=== PATIENT | female | born 1940 | race Asian ===

== ENCOUNTER 2018-07-09 10:06 | Inpatient (IN) | payer MEDICARE ==
[2018-07-09] VITALS (10 sets, daily range): BP systolic 89–111; BP diastolic 62–89
[~2018-07-09] VITALS: Ht 157.5 cm; Wt 68.0 kg
[2018-07-09] MEDS ORDERED: FAMOTIDINE10 MG ORAL (10:15)
[2018-07-09] MEDS ORDERED: NORCO 5-325 TA1 EACH ORAL (10:15)
[2018-07-09] MEDS ORDERED: ACETAMINOPHEN120 MG GT (10:15)
[2018-07-09] MEDS ORDERED: ATORVASTATIN CA20 MG ORAL (10:15)
[2018-07-09] MEDS ORDERED: ASPIRIN81 M3 PO (10:15)
[2018-07-09] MEDS ORDERED: Pantoprazole Inj IV ONE (10:15)
[2018-07-09] MEDS ORDERED: ELIQUIS5 MG GT (10:15)
--- NOTE | 2018-07-09 10:30 | NUR ---
ED Nurse Note: Patient brought in to ER by ambulance from [facility] due to vomiting blood since this morning. pt lethargic and drowsy and skin cold to touch and pale. pt non verbal and mental status and pupil reaction unable to assess. pt responds to deep pain only. labored breathing noted. pt is on 10L/min non-breathing mask and saturating 99%. no wheezing noted.
--- NOTE | 2018-07-09 10:40 | NUR ---
ED Nurse Note: Pt has G-tube and has Lt forearm 20G IV HL. Another IV HL made on Rt AC 20 G. non- breather mask removed with RT and saturating at 100% room air.
[2018-07-09 10:43] LABS: HEMATOCRIT 17.3 % (37.0-47.0); MEAN CORPUSCULAR VOLUME 92 FL (80-99); PLATELET COUNT 414 K/UL (150-450); RED BLOOD COUNT 1.88 M/UL (4.20-5.40); RED CELL DISTRIBUTION WIDTH 12.9 % (11.6-14.8); WHITE BLOOD COUNT 21.2 K/UL (4.8-10.8)
[2018-07-09 10:45] LABS: HEMOGLOBIN 5.9 G/DL (12.0-16.0)
[2018-07-09 10:49] LABS: INR 1.1 (0.9-1.1)
[2018-07-09] MEDS ORDERED: Piperacillin/Tazobactam 3.375 GM in NS 110 ML IVPB ONE (11:00)
--- NOTE | 2018-07-09 11:00 | NUR ---
ED Nurse Note: Pt had large BM in diaper, soft and tarry. ERMD notified.
[2018-07-09 11:02] LABS: ANION GAP 11 mmol/L (5-15); BLOOD UREA NITROGEN 99 mg/dL (7-18); CALCIUM 8.7 MG/DL (8.5-10.1); CARBON DIOXIDE 23 MMOL/L (21-32); CHLORIDE 108 MMOL/L (98-107); CREATININE 1.2 MG/DL (0.55-1.30); POTASSIUM 5.2 MMOL/L (3.5-5.1); SODIUM 142 MMOL/L (136-145)
[2018-07-09 11:04] LABS: APPEARANCE,URINE CLOUDY; BILIRUBIN, URINE NEGATIVE (NEGATIVE); GLUCOSE, URINE (UA) NEGATIVE (NEGATIVE); KETONES,URINE 1+ (NEGATIVE); LEUKOCYTE ESTERASE ,URINE 3+ (NEGATIVE); NITRITE,URINE NEGATIVE (NEGATIVE); PH,URINE 5 (4.5-8.0); PROTEIN,URINE 3+ (NEGATIVE); UROBILINOGEN,URINE NORMAL MG/DL (0.0-1.0)
[2018-07-09 11:05] LABS: AMMONIA 35 umol/L (11-32)
--- NOTE | 2018-07-09 11:10 | NUR ---
ED Nurse Note: Rt upper inner thigh/groin area redness with rash noted.
[2018-07-09 11:11] LABS: ALANINE AMINOTRANSFERASE 39 U/L (12-78); ALBUMIN 2.2 G/DL (3.4-5.0); ALBUMIN/GLOBULIN RATIO 0.6 (1.0-2.7); ALKALINE PHOSPHATASE 50 U/L (46-116); ASPARTATE AMINO TRANSFERASE 50 U/L (15-37); BILIRUBIN,TOTAL 0.1 MG/DL (0.2-1.0); CREATINE KINASE 827 U/L (26-308)
[2018-07-09 11:15] LABS: COLOR,URINE PALE YELLOW
--- NOTE | 2018-07-09 11:26 | NUR ---
ED Nurse Note: notified Dr Kenneth joyner pt's BP
--- NOTE | 2018-07-09 11:50 | Diagnostic Imaging Report ---
Indications: Altered mental status Technique: Spiral acquisitions obtained through the brain. Angled axial and coronal 5 x 5 mm slices were reconstructed. Total dose length product 1417.94 mGycm. CTDI vol(s) 70.38 mGy. Dose reduction achieved using automated exposure control Comparison: None. Findings: There is evidence of prior right frontotemporoparietal craniotomy. 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 There is a small extra-axial collection deep to the craniotomy flap which measures approximately 5 mm thick. This demonstrates a high attenuation in earlier and lower attenuation peripherally. This does not result in any significant mass effect. No definite acute intracranial hemorrhage nor edema, mass effect, nor midline shift. There is enlargement of the ventricles and to a lesser extent the extra-axial CSF spaces. There is periventricular deep white matter low-attenuation. Visualized orbits and sinuses are unremarkable. The left mastoids are underpneumatized. Impression: Evidence of prior right-sided aneurysm clipping Ventriculomegaly. Most likely on the basis of central atrophy but hydrocephalus also possible. Periventricular low attenuation, most likely on the basis of microvascular ischemic changes. 5 mm thick extra-axial collection deep to the craniotomy flap. Appearance is more suggestive of chronic dural scarring related to the prior surgery than acute bleed. No associated mass effect The CT scanner at [facility] is accredited by the [employer] and the scans are performed using protocols designed to limit radiation exposure to as low as reasonably achievable to attain images of sufficient resolution adequate for diagnostic evaluation.
--- NOTE | 2018-07-09 12:00 | NUR ---
ED Nurse Note: Blood transfusion initiated at Vital signs 98.4F, 111/min, 91/54 mmHg.
--- NOTE | 2018-07-09 12:15 | NUR ---
ED Nurse Note: RN stayed at bedside for 15 minutes and no adverse reaction noted. Vital signs 98.8F, 112/min, 89/65 mmHg. Son at bedside.
--- NOTE | 2018-07-09 12:32 | Diagnostic Imaging Report ---
Indication: Abdominal pain, GI bleed Technique: Spiral acquisitions obtained through the abdomen and pelvis. No oral contrast utilized, per emergency room physician request No IV contrast utilized, per referring physician request.. Multiplanar reconstructions were generated. Total dose length product 569.56 mGycm. CTDIvol(s) 11.9 mGy. Dose reduction achieved using automated exposure control Comparison: None Findings: There is some image degradation due to respiratory motion artifact. Lack of enteric contrast limits assessment of the GI tract. No evidence of diverticulosis or diverticulitis. The appendix is normal. There is a gastrostomy tube in good position. Distal esophagus, stomach, duodenum are otherwise unremarkable. No small bowel distention. No free or loculated intraperitoneal gas or fluid is evident. Lack of IV contrast limits assessment of the solid organs. The gallbladder is mildly distended. No gallstones are evident. The liver, bile ducts, pancreas, spleen, adrenals, kidneys are grossly unremarkable. No retroperitoneal or mesenteric mass or adenopathy. No pelvic mass or adenopathy. The uterus and adnexal structures are unremarkable. Amato catheter is present within the bladder which is nondistended. Atelectatic changes and hazy ground glass opacities are seen at the lung bases. The bones demonstrate degenerative spondylosis changes. There is a pericardial effusion, predominantly involving the anterior wall, which measures up to 15 mm thick Impression: Limited assessment of the GI tract, due to lack of enteric contrast administration No definite acute abdominal or pelvic abnormality 15 mm thick anterior wall pericardial effusion Gastrostomy Basilar pulmonary atelectatic changes. Nonspecific hazy groundglass opacities, could represent atelectasis or edema Other findings as noted, including degenerative spondylosis, Amato catheter The CT scanner at [facility] is accredited by the [employer] and the scans are performed using protocols designed to limit radiation exposure to as low as reasonably achievable to attain images of sufficient resolution adequate for diagnostic evaluation.
[2018-07-09] MEDS ORDERED: Zosyn 3.375gm inj ONE (12:43)
--- NOTE | 2018-07-09 13:43 | NUR ---
ED Nurse Note: BP is increasing to 108/76 mmHg
--- NOTE | 2018-07-09 14:21 | Diagnostic Imaging Report ---
. Indication: Cough Technique: One view of the chest Comparison: none Findings: There is some atelectasis at the left lung base. Lungs and pleural spaces are otherwise clear. Heart size is normal. Impression: Left basilar atelectasis. No acute process otherwise
--- NOTE | 2018-07-09 14:45 | NUR ---
ED Nurse Note: 2nd bag of blood initiated with 2 RN verification. no adverse reaction noted. VS 98F, 107/min, 106/72 mmHg.
--- NOTE | 2018-07-09 15:00 | NUR ---
ED Nurse Note: nurse stayed at bedside for 15 minutes and no adverse reaction noted. pt responds to commands which is improved status than earlier.
--- NOTE | 2018-07-09 15:02 | NUR ---
ED Nurse Note: attempted to give report. nurse is not available. will attempt in 20 minutes again.
--- NOTE | 2018-07-09 15:41 | Emergency Room Report ---
History of Present Illness General Chief Complaint: Altered Level of Consciousness Source: Family Member, Medical Record, EMS Present Illness HPI Patient presents emergency department today with episode of coffee-ground emesis and melena. Patient had a history of subarachnoid hemorrhage or prior surgical intervention. Patient currently staying in a intermediate. Patient is DO NOT RESUSCITATE with selective treatment. Family states that they do not want anything invasive or heroic. Patient at baseline is nonverbal. No further history is available. Symptoms noted to be highly severe. No other modifying factors. No other associated signs and symptoms. No other complaints were noted. Allergies: Coded Allergies: No Known Allergies (Unverified , 07/09/18) Patient History Past Medical History: CVA/TIA Past Surgical History: other - Brain surgery Pertinent Family History: none Social History Narrative stays at intermediate Reviewed Nursing Documentation: PMH: Agreed; PSxH: Agreed Nursing Documentation-PMH Hx Cerebrovascular Accident: Yes Review of Systems All Other Systems: limited - Poor mental status Physical Exam Vital Signs Date Time Temp Pulse Resp B/P (MAP) Pulse Ox O2 Delivery O2 Flow Rate FiO2 07/09/18 09:59 98.6 130 20 106/84 99 Non-Rebreather 15.0 Sp02 EP Interpretation: reviewed, normal General Appearance: Chronically Ill, Stupor Head: atraumatic Eyes: bilateral eye normal inspection ENT: dry mucus membranes, other - Coffee-ground emesis Neck: normal inspection, full range of motion, supple, no bony tend Respiratory: decreased breath sounds, other - Increased respiratory rate Cardiovascular #1: no edema, tachycardia Gastrointestinal: soft, other - No masses Genitourinary: deferred Musculoskeletal: decreased range of motion, other - Evidence of contractures Neurologic: other - Unable to assess Psychiatric: other - Unable to assess Skin: normal inspection, normal color, no rash Procedures Critical Care Time Critical Care Time Patient had a critical medical condition which untreated could potentially result in life or limb threatening injury. Total critical care time excluding procedures was approximately 45 minutes. Medical Decision Making Diagnostic Impression: Primary Impression: Sepsis Additional Impressions: Acute gastrointestinal bleeding Hypotension Anemia ER Course Patient presents emergency department today with active bleeding. Differential considerations include acute GI bleeding, acute infectious process, acute electrolyte abnormality, anemia, dehydration just name a few.Given the severity of the patient's presentation I felt this is a highly complex patient. This patient required extensive workup. Patient's laboratory workup shows an elevated white blood cell count. Because this patient was started on IV antibiotics. Urine does show evidence of infection and likely the source of patient's infection. Patient had a chest x-ray which was negative. Patient's CT of the head abdomen pelvis were also negative. Patient was given Protonix. Patient was given blood transfusion. Case was discussed with Dr. Kayden Nichols. Patient will be admitted to the [facility] for further management. Patient is DO NOT RESUSCITATE. Labs Test 07/09/18 10:28 07/09/18 10:50 White Blood Count 21.2 K/UL (4.8-10.8) Red Blood Count 1.88 M/UL (4.20-5.40) Hemoglobin 5.9 G/DL (12.0-16.0) Hematocrit 17.3 % (37.0-47.0) Mean Corpuscular Volume 92 FL (80-99) Mean Corpuscular Hemoglobin 31.1 PG (27.0-31.0) Mean Corpuscular Hemoglobin Concent 33.8 G/DL (32.0-36.0) Red Cell Distribution Width 12.9 % (11.6-14.8) Platelet Count 414 K/UL (150-450) Mean Platelet Volume 5.9 FL (6.5-10.1) Neutrophils (%) (Auto) % (45.0-75.0) Lymphocytes (%) (Auto) % (20.0-45.0) Monocytes (%) (Auto) % (1.0-10.0) Eosinophils (%) (Auto) % (0.0-3.0) Basophils (%) (Auto) % (0.0-2.0) Differential Total Cells Counted 100 Neutrophils % (Manual) 79 % (45-75) Lymphocytes % (Manual) 13 % (20-45) Monocytes % (Manual) 5 % (1-10) Eosinophils % (Manual) 0 % (0-3) Basophils % (Manual) 0 % (0-2) Band Neutrophils 3 % (0-8) Platelet Estimate Adequate Platelet Morphology Normal Polychromasia 1+ Hypochromasia 2+ Prothrombin Time 11.4 SEC (9.30-11.50) Prothromb Time International Ratio 1.1 (0.9-1.1) Activated Partial Thromboplast Time 27 SEC (23-33) Sodium Level 142 MMOL/L (136-145) Potassium Level 5.2 MMOL/L (3.5-5.1) Chloride Level 108 MMOL/L (98-107) Carbon Dioxide Level 23 MMOL/L (21-32) Anion Gap 11 mmol/L (5-15) Blood Urea Nitrogen 99 mg/dL (7-18) Creatinine 1.2 MG/DL (0.55-1.30) Estimat Glomerular Filtration Rate mL/min (>60) Glucose Level 166 MG/DL (74-106) Calcium Level 8.7 MG/DL (8.5-10.1) Total Bilirubin 0.1 MG/DL (0.2-1.0) Aspartate Amino Transf (AST/SGOT) 50 U/L (15-37) Alanine Aminotransferase (ALT/SGPT) 39 U/L (12-78) Alkaline Phosphatase 50 U/L (46-116) Ammonia 35 umol/L (11-32) Total Creatine Kinase 827 U/L (26-308) Troponin I 0.099 ng/mL (0.000-0.056) Total Protein 5.9 G/DL (6.4-8.2) Albumin 2.2 G/DL (3.4-5.0) Globulin 3.7 g/dL Albumin/Globulin Ratio 0.6 (1.0-2.7) Lipase 540 U/L (73-393) Urine Color Pale yellow Urine Appearance Cloudy Urine pH 5 (4.5-8.0) Urine Specific [place] 1.015 (1.005-1.035) Urine Protein 3+ (NEGATIVE) Urine Glucose (UA) Negative (NEGATIVE) Urine Ketones 1+ (NEGATIVE) Urine Blood 5+ (NEGATIVE) Urine Nitrite Negative (NEGATIVE) Urine Bilirubin Negative (NEGATIVE) Urine Urobilinogen Normal MG/DL (0.0-1.0) Urine Leukocyte Esterase 3+ (NEGATIVE) Urine RBC 5-10 /HPF (0 - 2) Urine WBC Tntc /HPF (0 - 2) Urine Squamous Epithelial Cells Few /LPF (NONE/OCC) Urine Bacteria Moderate /HPF (NONE) EKG Diagnostic Results Rate: tachycardiac Rhythm: NSR ST Segments: no acute changes Rhythm Strip Diag. Results EP Interpretation: yes Rate: 118 Rhythm: NSR, no PVC's, no ectopy Chest X-Ray Diagnostic Results Chest X-Ray Diagnostic Results : Chest X-Ray Ordered: Yes Impression: Other - Negative per radiology CT/MRI/US Diagnostic Results CT/MRI/US Diagnostic Results : Imaging Test Ordered: CT head: Postsurgical changes, CT on pelvis: NegativeExcept for pericardial Last Vital Signs Date Time Temp Pulse Resp B/P (MAP) Pulse Ox O2 Delivery O2 Flow Rate FiO2 07/09/18 15:00 97.8 106 20 111/80 100 Room Air 07/09/18 10:30 10.0 Status: improved Disposition: ADMITTED INPATIENT Condition: Serious Referrals: NON PHYSICIAN (PCP) Lalo Cooper MD Jul 09, 2018 15:41
--- NOTE | 2018-07-09 16:06 | NUR ---
ED Nurse Note: Report given to MELE Denise
--- NOTE | 2018-07-09 16:30 | NUR ---
ED Nurse Note: Pt left department with 1 interventional radiology tech and 1 RN in stable condition. blood transfusion completed without adverse reaction. vital signs at 97.9F, 103/min, 107/77 mmHg noted.
--- NOTE | 2018-07-09 16:40 | NUR ---
NURSE NOTES: Received pt ,a new admission from ED,lethargic,non verbal in no resp distress on RA,no signs of pain or discomfort,SR on the monitor,accompanied by spouse and family members.Pt with Amato cath draining yellow urine,IV site to RAC and RFA intact,pt with clamped GT,skin warm and dry,no skin break noted to sacrum,pt cleaned and turned to sides,bed lock in lowest position,bed alarm in placed.Report given by Fouzia ZELAYA RN.
[2018-07-09] MEDS ORDERED: DUONEB 0.5-3(2.53 ML HHN (17:20)
--- NOTE | 2018-07-09 19:20 | NUR ---
NURSE NOTES: Received report from Анна Cagle RN. Patient is asleep in bed, arousable to light shaking, A/O x1. Sinus rhythm on quality assurance monitor. Saturating well on room air. No s/s of acute distress noted. GT in place and currently clamped. Amato catheter intact and draining well to gravity. Right AC 20g IV saline lock, intact and patent. Right forearm 20g IV saline lock, intact and patent. Bed locked in lowest position with side rails up x3. Call light left within reach. Will continue to monitor. Addendum: 07/10/18 at 0024 by MINDI STEPHEN RN LEFT WRIST 20g -- NOT right forearm 20g
--- NOTE | 2018-07-09 19:30 | NUR ---
HAND-OFF: Report given to Fela Kate RN,pt resting in bed asleep ,stable no further bleeding presented.Pt received 2 units of PRBC in ER. .
[2018-07-09] MEDS: Piperacillin/Tazobactam 3.375 GM in NS 110 ML IVPB SCH (22:05)
[2018-07-10] VITALS: BP 112/64
--- NOTE | 2018-07-10 01:30 | Consultation ---
DATE OF CONSULTATION: 07/09/2018 CARDIOLOGY CONSULTATION CONSULTING PHYSICIAN: Kayden Nichols M.D. REQUESTING PHYSICIAN: Miguel Walker M.D. REASON FOR CONSULTATION: Shock and elevated troponin level. HISTORY OF PRESENT ILLNESS: This is a 77-year-old Nepali female, who resides at a care home facility. She was noted to be withdrawn and lethargic today and had coffee-grounds emesis and melena. The patient has a history of prior subarachnoid hemorrhage and has underlying cerebrovascular compromise as a result. Advance directives for DNR noted. The patient is nonverbal at baseline. In the emergency room, the patient was noted to have a drop in blood pressure to the 80 systolic range, rapid heart rate above 130, and an abnormal hemoglobin level of 5.9. PAST MEDICAL HISTORY: Cerebrovascular accident, subarachnoid hemorrhage, chronic encephalopathy, aphasia, and hypertension. MEDICATIONS: Prior to admission, reviewed and reconciled. ALLERGIES: None. SOCIAL HISTORY: Negative for smoking, alcohol, or substance abuse. FAMILY HISTORY: Not known. REVIEW OF SYSTEMS: Not obtainable. PHYSICAL EXAMINATION: VITAL SIGNS: Initial blood pressure 106/84, heart rate 130, and respiratory rate 20. Subsequently, blood pressure 89/65 with heart rate 112 and respiratory rate 21. The patient has been on a non-rebreather mask, withdrawn, lethargic, and noncommunicative. LUNGS: Accessary muscle use. Bilateral breath sounds with rhonchi. HEART: Regular rhythm and rate. Normal S1, S2. ABDOMEN: Soft. There is a G-tube intact. There is no focal tenderness or distention. EXTREMITIES: Without edema. SKIN: Intact with no decubitus. LABORATORY DATA: White count 21, hemoglobin 5.9, and platelets 414,000. Troponin 0.099. Albumin 2.2. Sodium 142, potassium 5.2, bicarbonate 23, BUN 99, creatinine 1.2, and glucose 166. CK 827. Lipase 540. Chest x-ray reveals no acute process. EKG reveals sinus tachycardia with nonspecific ST change. Urinalysis revealed too numerous to count white cells. IMPRESSION: 1. Acute gastrointestinal bleeding. 2. Urinary tract infection with sepsis. 3. Shock. 4. Severe anemia. 5. Possible pancreatitis. 6. Acute myocardial ischemia. 7. Sinus tachycardia. 8. History of hemorrhagic stroke. 9. Coagulopathy due to apixaban. 10. Severe protein-calorie malnutrition. 11. Dysphagia with G-tube. 12. Pericardial effusion. PLAN: 1. DNR. 2. Volume resuscitation. 3. Panculture. 4. Broad-spectrum antibiotics. 5. Transfuse for hemoglobin above 7. 6. Discontinue all anti-platelet and anticoagulant therapy. 7. Intravenous proton pump inhibitor. 8. Recheck laboratory studies. 9. NPO for now. Subsequent nutrition by feeding tube. 10. Pressors may be used if needed, but no resuscitation or intubation planned. 11. Echocardiogram to evaluate pericardium. Kayden Nichols M.D. DR: JUAN JOB#: [id number] CC: TACO
[2018-07-10 04:00] VITALS: BP 105/67
[2018-07-10] MEDS: Piperacillin/Tazobactam 3.375 GM in NS 110 ML IVPB SCH ×3 (05:30→22:08)
[2018-07-10 05:45] LABS: HEMOGLOBIN 8.5 G/DL (12.0-16.0); MEAN CORPUSCULAR VOLUME 89 FL (80-99); PLATELET COUNT 288 K/UL (150-450); RED BLOOD COUNT 2.81 M/UL (4.20-5.40); RED CELL DISTRIBUTION WIDTH 12.9 % (11.6-14.8)
[2018-07-10 06:18] LABS: CKMB 3.5 NG/ML (0.0-3.6)
[2018-07-10 06:25] LABS: ALANINE AMINOTRANSFERASE 34 U/L (12-78); ALBUMIN 2.2 G/DL (3.4-5.0); ALBUMIN/GLOBULIN RATIO 0.7 (1.0-2.7); ALKALINE PHOSPHATASE 41 U/L (46-116); ANION GAP 9 mmol/L (5-15); ASPARTATE AMINO TRANSFERASE 34 U/L (15-37); BILIRUBIN,TOTAL 0.2 MG/DL (0.2-1.0); BLOOD UREA NITROGEN 49 mg/dL (7-18); CALCIUM 7.9 MG/DL (8.5-10.1); CARBON DIOXIDE 23 MMOL/L (21-32); CHLORIDE 117 MMOL/L (98-107); CHOLESTEROL 121 MG/DL (< 200); CREATININE 0.8 MG/DL (0.55-1.30); HDL CHOLESTEROL 17 MG/DL (40-60); POTASSIUM 4.2 MMOL/L (3.5-5.1); SODIUM 149 MMOL/L (136-145); TRIGLYCERIDES 260 MG/DL (30-150)
--- NOTE | 2018-07-10 07:15 | NUR ---
HAND-OFF: Report given to Анна Cagle RN.
--- NOTE | 2018-07-10 07:20 | NUR ---
NURSE NOTES: Report received from Fela Kate RN.Pt resting quietly in bed ,with eyes closed ,opens eyes with verbal commands,non verbal but nods or shakes head as a reply,no signs of pain or discomfort,no bleeding presented,kept NPO GT clamped with abdominal binder in placed,Amato cath to BSD draining yellow urine,IV sites x2 RAC and RH with IVF NS at 75ml/hr,skin warm and dry,SR up x2 HOB elevated,bed lock in lowest position,will continue with plans of care.
[2018-07-10 08:00] VITALS: BP 93/58
--- NOTE | 2018-07-10 08:07 | NUR ---
CASE MANAGEMENT:REVIEW 77 YR OLD [facility] CC: ALOC. DARK COLORED EMESIS X2 SI: SEPSIS. GIB. ANEMIA 130 20 106/84 99% ON NON REBREATHER WBC+21.2 H/H-5.9/17.3 IS: IV ZOFRAN IV PROTONIX IV PEPCID CT HEAD/ABD/PELVIS CHEST XRAY : TO TELEMETRY IS: TRANSFUSE 2 UNITS PRBC'S INTERQUAL CRITERIA MET
[2018-07-10] MEDS: Pantoprazole Inj IVP SCH (09:23)
[2018-07-10 12:00] VITALS: BP 111/59
--- NOTE | 2018-07-10 13:00 | NUR ---
NURSE NOTES: Pt stable no vomitting or bleeding presented,resting quietly in bed.
[2018-07-10 16:00] VITALS: BP 125/74
--- NOTE | 2018-07-10 16:23 | NUR ---
*-* INSURANCE *-* ALL CLINICALS AND REVIEW HAVE BEEN FAXED TO: NEHA/LO[employer]: PEYMAN P- [phone] [phone] [phone]
--- NOTE | 2018-07-10 17:28 | NUR ---
NURSE NOTES: Pt's family at bedside,awaiting for Dr Nichols.they would like to know re plans of care for pt.
--- NOTE | 2018-07-10 19:30 | NUR ---
HAND-OFF: Report given to London Gray RN .
--- NOTE | 2018-07-10 19:35 | NUR ---
NURSE NOTES: Received report from MELE Holloway. Pt is awake and resting in bed. IV line intact and patent. Bed in lowest position, call light within reach. Will Continue plan of care.
[2018-07-10 20:00] VITALS: BP 118/61
[2018-07-10] MEDS: D5 1/2NS w/KCL 10meq 1,000 ML IV SCH (20:22)
[2018-07-11] VITALS: BP 136/78
--- NOTE | 2018-07-11 | Progress Note ---
DATE: 07/10/2018 CARDIOLOGY PROGRESS NOTE SUBJECTIVE: The patient is not in any distress. Eyes are closed, response to verbal commands with head nodding. No apparent pain. No shortness of breath. No additional nausea or vomiting. G-tube is clamped. PHYSICAL EXAMINATION: VITAL SIGNS: Blood pressure 105/67, pulse 93, respirations 20. LUNGS: Coarse breath sounds. No wheezing. HEART: Regular rhythm and rate. Normal S1, S2. ABDOMEN: Soft. G-tube intact. EXTREMITIES: No focal tenderness. No edema. DIAGNOSTIC DATA: Echocardiogram, normal ejection fraction, mild tricuspid regurgitation. Hemodynamically insignificant pericardial echo free space. Urine culture positive for gram-negative bacillus. IMPRESSION: 1. Sepsis. 2. Urinary tract infection with shock. 3. GI bleed. 4. Severe anemia, follow status post transfusion. 5. Dehydration. 6. Hypernatremia. 7. Severe protein-calorie malnutrition. PLAN: 1. Hypotonic IV fluids. 2. Monitor hemoglobin. 3. Antimicrobials. 4. Await final cultures. 5. GI consult pending. 6. Proton pump inhibitor. 7. Resume feedings if no signs of bleeding over the next 24 hours. Kayden Nichols M.D. DR: TANYA JOB#: [id number] CC:
[2018-07-11 04:00] VITALS: BP 115/66
[2018-07-11 05:28] LABS: HEMATOCRIT 23.4 % (37.0-47.0); HEMOGLOBIN 7.9 G/DL (12.0-16.0); MEAN CORPUSCULAR VOLUME 91 FL (80-99); PLATELET COUNT 269 K/UL (150-450); RED BLOOD COUNT 2.57 M/UL (4.20-5.40); RED CELL DISTRIBUTION WIDTH 13.5 % (11.6-14.8); WHITE BLOOD COUNT 16.1 K/UL (4.8-10.8)
[2018-07-11 05:58] LABS: ALANINE AMINOTRANSFERASE 29 U/L (12-78); ALBUMIN 2.1 G/DL (3.4-5.0); ALBUMIN/GLOBULIN RATIO 0.7 (1.0-2.7); ALKALINE PHOSPHATASE 46 U/L (46-116); ANION GAP 9 mmol/L (5-15); ASPARTATE AMINO TRANSFERASE 30 U/L (15-37); BILIRUBIN,TOTAL 0.3 MG/DL (0.2-1.0); BLOOD UREA NITROGEN 23 mg/dL (7-18); CALCIUM 7.4 MG/DL (8.5-10.1); CARBON DIOXIDE 22 MMOL/L (21-32); CHLORIDE 117 MMOL/L (98-107); CREATININE 0.7 MG/DL (0.55-1.30); POTASSIUM 3.3 MMOL/L (3.5-5.1); SODIUM 148 MMOL/L (136-145)
[2018-07-11] MEDS: D5 1/2NS w/KCL 10meq 1,000 ML IV SCH ×3 (06:11→17:18)
[2018-07-11] MEDS: Piperacillin/Tazobactam 3.375 GM in NS 110 ML IVPB SCH (06:11)
--- NOTE | 2018-07-11 07:19 | NUR ---
NURSE NOTES: Report received from MELE Callahan. Observed patient in bed sleeping. Arousable by voice but non-verbal. No distress noted in room air. IVF running at prescribed rate. No s/s of pain at this time. F/C intact and draining well. Bed in lowest position. Call light within reach. Will continue to monitor.
--- NOTE | 2018-07-11 07:20 | NUR ---
HAND-OFF: Report given to MELE Moreira.
--- NOTE | 2018-07-11 07:33 | NUR ---
NURSE NOTES: Informed Dr. Kim regarding decreased Hgb level with no new order at this time.
--- NOTE | 2018-07-11 07:58 | General Progress Note ---
Assessment/Plan Assessment/Plan Assessment - UGIB - clinically resolved - Anemia - Dysphagia, s/p Prior GT - CVA/OBS - DNR Recommendations - Follow CBC - Hold anticoagulation - PPI - discuss with family re options and plan of care - If no planned EGD, would restart feeds today. Thank you Tonia Kim MD Subjective Allergies: Coded Allergies: No Known Allergies (Unverified , 07/09/18) Objective Last 24 Hour Vital Signs Date Time Temp Pulse Resp B/P (MAP) Pulse Ox O2 Delivery O2 Flow Rate FiO2 07/11/18 07:45 Room Air 07/11/18 04:00 Room Air 07/11/18 04:00 82 07/11/18 04:00 98.7 82 20 115/66 (82) 98 07/11/18 00:00 Room Air 07/11/18 00:00 85 07/11/18 00:00 98.6 85 18 136/78 (97) 97 07/10/18 20:00 81 07/10/18 20:00 98.7 81 20 118/61 (80) 98 07/10/18 20:00 Room Air 07/10/18 16:00 97 07/10/18 16:00 Room Air 07/10/18 16:00 98.6 97 20 125/74 (91) 96 07/10/18 12:00 Room Air 07/10/18 12:00 94 07/10/18 12:00 98.8 92 18 111/59 (76) 96 07/10/18 08:00 99 07/10/18 08:00 Room Air 07/10/18 08:00 97.9 93 22 93/58 (70) 99 Intake and Output 07/10/18 07/11/18 18:59 06:59 Intake Total 910 ml Output Total 600 ml 1000 ml Balance -600 ml -90 ml IV Total 910 ml Output Urine Total 600 ml 1000 ml Laboratory Tests 07/11/18 03:45: White Blood Count 16.1H, Red Blood Count 2.57L, Hemoglobin 7.9L, Hematocrit 23.4L, Mean Corpuscular Volume 91, Mean Corpuscular Hemoglobin 30.7, Mean Corpuscular Hemoglobin Concent 33.6, Red Cell Distribution Width 13.5, Platelet Count 269, Mean Platelet Volume 6.4L, Neutrophils (%) (Auto) , Lymphocytes (%) ( Auto) , Monocytes (%) (Auto) , Eosinophils (%) (Auto) , Basophils (%) (Auto) , Neutrophils % (Manual) [Pending], Lymphocytes % (Manual) [Pending], Platelet Estimate [Pending], Platelet Morphology [Pending], Sodium Level 148H, Potassium Level 3.3L, Chloride Level 117H, Carbon Dioxide Level 22, Anion Gap 9, Blood Urea Nitrogen 23H, Creatinine 0.7, Estimat Glomerular Filtration Rate , Glucose Level 91, Calcium Level 7.4L, Total Bilirubin 0.3, Aspartate Amino Transf (AST/ SGOT) 30, Alanine Aminotransferase (ALT/SGPT) 29, Alkaline Phosphatase 46, Total Protein 5.3L, Albumin 2.1L, Globulin 3.2, Albumin/Globulin Ratio 0.7L, Lipase 220 Height (Feet): 5 Height (Inches): 2.00 Weight (Pounds): 150 Tonia Kim MD Jul 11, 2018 07:58
[2018-07-11 08:00] VITALS: BP 129/69
[2018-07-11] MEDS: Pantoprazole Inj IVP SCH (08:03)
--- NOTE | 2018-07-11 09:08 | NUR ---
NURSE NOTES: Informed Dr. Walker regarding low potassium level. Doctor said he will put orders.
[2018-07-11 12:00] VITALS: BP 135/70
[2018-07-11] MEDS ORDERED: cefTRIAXone 1 GM in D5W 55 ML IVPB SCH (12:00)
--- NOTE | 2018-07-11 14:50 | NUR ---
RD ASSESSMENT & RECOMMENDATIONS SEE CARE ACTIVITY FOR COMPLETE ASSESSMENT DAILY ESTIMATED NEEDS: Needs based on cardiac 55.5kg 25-30 kcals/kg 2129-6925 total kcals 1-1.2 g protein/kg 56-67 g total protein 25-30 mL/kg 4031-8927 total fluid mLs NUTRITION DIAGNOSIS: Swallowing difficulty r/t dysphagia as evidenced by pt is GT dep. CURRENT TF:NPO ENTERAL NUTRITION RECOMMENDATIONS: Osmolite 1.2 @50ml/hr x24 hrs to provide 1200ml, 1440 kcal, 67g prot, 984mll free H2O - As medically able, rec Osmolite 1.2, start @20ml/hr for 6 hrs - Advance as tolerated 10ml/hr q4-6 hrs to goal of 50ml/hr x24 hrs - Flush per MD. HOB over 30 degrees ADDITIONAL RECOMMENDATIONS: 1) Check lytes, BG daily on TF 2) Per SNF: pt is 122# -> Weekly wts on TF on Calibrated bed scale 3) Increase water flushes/ currently w/ elev Na (148) and BUN (23)
[2018-07-11 14:54] LABS: HEMATOCRIT 22.5 % (37.0-47.0); HEMOGLOBIN 7.5 G/DL (12.0-16.0); MEAN CORPUSCULAR VOLUME 90 FL (80-99); PLATELET COUNT 257 K/UL (150-450); RED BLOOD COUNT 2.49 M/UL (4.20-5.40); RED CELL DISTRIBUTION WIDTH 13.5 % (11.6-14.8); WHITE BLOOD COUNT 12.3 K/UL (4.8-10.8)
--- NOTE | 2018-07-11 15:00 | History and Physical Report ---
DATE OF ADMISSION: 07/09/2018 CHIEF COMPLAINT: GI bleed, sepsis, and encephalopathy. HISTORY OF PRESENT ILLNESS: The patient is a 77-year-old [place] female, who was transferred from a correction facility with complaints of altered mentation and coffee-ground emesis. The patient is a poor historian and unable provide any history. She has prior history of atrial fibrillation, aortic sclerosis, history of a ruptured internal carotid artery aneurysm, subarachnoid hemorrhage. She was transferred from a correction facility with complaints of altered mentation and coffee-ground emesis. On evaluation in the emergency room, her vital signs were stable. She had a white count of 21,000 and hemoglobin of 6 with hematocrit of 17. She has been transfused packed red blood cells and is now admitted for further evaluation and care. Of note, she also had UA showed too numerous to count wbc's. PAST MEDICAL HISTORY: As above. She has a history of aspiration pneumonia, history of G-tube, dysphagia, gastritis, prior history of craniotomy, osteoporosis, hyperlipidemia, history of vertigo, dementia, and cardiomegaly. PAST SURGICAL HISTORY: As above. CURRENT MEDICATIONS: Reconciled and reviewed. ALLERGIES: None. FAMILY HISTORY: Unknown. SOCIAL HISTORY: There is no known history of tobacco, ethanol, or drugs. The patient is a DNR. REVIEW OF SYSTEMS: Unobtainable. PHYSICAL EXAMINATION: VITAL SIGNS: Temperature 97.9, pulse 82, respirations 20, and blood pressure 129/69. GENERAL: The patient is a chronically ill-appearing female, no apparent distress. HEART: Regular rate and rhythm. LUNGS: Scattered rhonchi. ABDOMEN: Soft, nontender, and nondistended. G-tube site was clean and intact. EXTREMITIES: Without clubbing, cyanosis, or edema. LABORATORY AND DIAGNOSTIC DATA: White count 21,000, hemoglobin 5.9, hematocrit 17, and platelets of 414. Sodium 148, potassium 3.3, chloride 117, bicarb 22, BUN 23, creatinine 0.7. INR was normal. UA showed too numerous to count wbc's. CT scan of the head showed evidence of prior right-sided aneurysm clipping, ventriculomegaly, microvascular ischemic changes, prior craniotomy. Chest x-ray showed left basal atelectasis. ASSESSMENT: This is an unfortunate elderly female with a prior history of subarachnoid hemorrhage, internal carotid aneurysm rupture, status post clipping, history of aspiration pneumonia, craniotomy, dysphagia, status post G-tube, admitted with complaints of GI bleed and sepsis secondary to UTI. PLAN: IV antibiotic therapy. IV PPI. Hold anticoagulation in light of the patient's GI bleed. Cardiology, GI, and ID consultation will be obtained. The patient's status is currently guarded. Miguel Walker M.D. DR: ANN MARIE JOB#: [id number] CC:
--- NOTE | 2018-07-11 15:21 | NUR ---
*-* INSURANCE *-* ALL CLINICALS AND REVIEW HAVE BEEN FAXED TO: NEHA/LOBITO: PEYMAN P- [phone] [phone]
--- NOTE | 2018-07-11 15:32 | NUR ---
CASE MANAGEMENT:REVIEW 07/11/18 SI: SEPSIS. GIB. ANEMIA 97.7 80 20 135/70 96% ON RA WBC+12.3 H/H-7.5/22.5 K-3.3 IS: TRANSFUSE 2 UNITS PRBC'S IV ROCEPHIN Q24 IVF@100/HR IV PROTONIX QD : STEP DOWN UNIT DCP: FROM [facility]
[2018-07-11 15:56] VITALS: BP 131/63
--- NOTE | 2018-07-11 16:45 | Consultation ---
DATE OF CONSULTATION: 07/11/2018 INFECTIOUS DISEASES CONSULTATION CONSULTING PHYSICIAN: Armaan Gatica M.D. REFERRING PHYSICIAN: Kayden Nichols M.D. REASON FOR CONSULTATION: Urinary tract infection. HISTORY OF PRESENTING ILLNESS: This is a 77-year-old lady who was transferred from a shelter facility because she had increasing lethargies. She also had coffee-grounds emesis and melena. She has a history of subarachnoid hemorrhage from bleeding brain aneurysm. She has been seen by Gastroenterology. An Infectious Diseases consultation has been obtained for urinary tract infection. PAST MEDICAL HISTORY: 1. History of cerebrovascular accident. 2. Subarachnoid hemorrhage from bleeding brain aneurysm. 3. Encephalopathy. 4. Hypertension. 5. Aphasia. SOCIAL HISTORY: She does not smoke, drink, or use drugs. FAMILY HISTORY: Unknown. REVIEW OF SYSTEMS: Unable to obtain currently. SOCIAL HISTORY: No history of smoking, alcohol, or drug use. MEDICATIONS: As an inpatient, she is on Zosyn and Protonix. ALLERGIES: No known drug allergies. PHYSICAL EXAMINATION: VITAL SIGNS: Temperature of 97.9, T-max of 98.9, pulse of 82, respiratory rate 20, blood pressure 129/69, O2 saturation of 97% HEENT: Pupils equally reactive to light and accommodation. Mouth appears clean without thrush. NECK: Supple. No adenopathy. No JVD. CARDIOVASCULAR: Regular rate and rhythm. No murmurs. LUNGS: Clear to auscultation bilaterally. No crackles. No wheezes. ABDOMEN: Soft and nontender. No organomegaly. EXTREMITIES: No cyanosis, no clubbing, no edema. LABORATORY AND DIAGNOSTIC DATA: White count of 22 on 07/10/2018, white count of 16 on 07/11/2018, hemoglobin 7.9, hematocrit 23.4, MCV 91, and platelet count of 269,000 with neutrophils of 86%. Sodium 148, potassium 3.3, chloride 117, bicarb 22, BUN 23, creatinine 0.7, glucose 91, calcium 7.4. Total bilirubin 0.3. AST 30, ALT 29, alkaline phosphatase 46. Total protein 5.3 and albumin 2.1. UA showing too numerous to count white cells. Urine culture growing E coli, which is susceptible to ceftriaxone, ciprofloxacin, ertapenem, piperacillin and tazobactam. Nasal swab was negative for MRSA. CT head showing evidence of prior right-sided aneurysm clipping, ventriculomegaly, cerebral atrophy, microvascular ischemic changes noted. Chest x-ray showed left base atelectasis. CT abdomen and pelvis showing bibasilar atelectases, nonspecific hazy ground-glass opacities could represent atelectasis or edema. ASSESSMENT: This is a 77-year-old lady with history of brain aneurysm with subarachnoid hemorrhage and CVA who comes in with coffee-grounds emesis and is found to have. 1. Urinary tract infection with E. coli. 2. Leukocytosis is improving. 3. GI bleeding. PLAN: 1. Discontinue Zosyn. 2. We will start the patient on ceftriaxone. 3. We will follow up cultures. I would like to thank, Dr. Nichols, for this consultation. Armaan Gatica M.D. DR: Black JOB#: [id number] CC: Kayden Nichols M.D.
--- NOTE | 2018-07-11 17:01 | NUR ---
TRANSFER TO FLOOR: Patient transferred to Telemetry via hospital bed. Report given to MELE Richter. No belongings noted. Medications given to RN. Family informed of transfer. Stable condition.
--- NOTE | 2018-07-11 18:01 | NUR ---
NURSE NOTES: pt asleep arousable, no distress. gt patent and intact, no residual, ivf running. call light wihtin reach. hob elevated. bed in lowest position, locked.
--- NOTE | 2018-07-11 19:15 | Consultation ---
DATE OF CONSULTATION: 07/11/2018 GASTROENTEROLOGY CONSULTATION CONSULTING PHYSICIAN: Tonia Kim M.D. CHIEF COMPLAINT: I was asked to see this patient by Dr. Miguel Walker and Dr. Kayden Nichols, for evaluation of gastrointestinal bleeding. HISTORY OF PRESENT ILLNESS: The patient is a 77-year-old German woman from a detention, who was brought to the hospital due to altered mental status and coffee-ground emesis. The patient is nonverbal and unable to provide any history due to her underlying stroke and subarachnoid hemorrhage. The patient has a gastrostomy tube for long-term feeding. She is in a Do Not Resuscitate status. In the hospital emergency room, she was hypotensive and severely anemic. She was resuscitated with fluids and transfusion and she has been more stabilized now. Feedings have been held in view of her observation status. She was also on systemic anticoagulation, which has been held at this time. There is no report of previous endoscopy or gastrointestinal history on this patient. The patient was also on aspirin prior to admission. PAST MEDICAL HISTORY: History of cerebrovascular disease with stroke and subarachnoid hemorrhage, chronic encephalopathy due to above with aphagia and dysphagia, status gastrostomy tube placement, bedbound state, and hypertension. MEDICATIONS: See the chart list for details. Of note, the patient's prior to admission medication list, includes Eliquis 5 mg twice a day and the last dose of this was was reportedly on the second in the evening and also there is aspirin 81 mg daily. ALLERGIES: No known drug allergies. FAMILY HISTORY: Unavailable. SOCIAL HISTORY: The patient has had no recent history of smoking or drinking. She requires 24-hour care at detention. REVIEW OF SYSTEMS: Otherwise unavailable. PHYSICAL EXAMINATION: GENERAL: Debilitated elderly woman, seen in her room. HEENT: Normocephalic and atraumatic. Sclerae anicteric. Dentition was poor. NECK: Supple. CHEST: Clear to auscultation. CARDIOVASCULAR: Revealed regular rate. ABDOMEN: Soft, flat with good bowel sounds. Gastrostomy tube was in good position. EXTREMITIES: Revealed trace edema.. LABORATORY DATA: Noted. The patient's hemoglobin on admission was 5.9, but now it is 7.9. The peak at 8.5 yesterday. Platelet count was normal. PT and PTT are also normal. Chemistry panel shows a mildly elevated sodium and a mildly depressed potassium. ASSESSMENT: This patient presents with acute upper gastrointestinal bleeding of unclear etiology. Differential diagnosis would include peptic ulcer disease versus gastroesophageal reflux disease versus other typical pathologies for upper gastrointestinal bleeding. In the setting of anticoagulation, this lesion may have been more profusely resolved in this admission. At this time, the bleeding has clinically stopped and in fact the nursing staff has stated that the patient has had no bowel movement since admission. I will discuss the management with the patient's family and design the course of action. Given her poor health and Do Not Resuscitate status, more conservative approach may be appropriate. RECOMMENDATIONS: 1. Hold anticoagulation. 2. Continue observation and monitoring. 3. Transfuse as necessary. 4. We will discuss with the family and medical team regarding the plan of care. Thank you for asking me to participate in the care of this patient. Tonia Kim M.D. DR: SERGIO JOB#: [id number] CC:
--- NOTE | 2018-07-11 19:27 | NUR ---
HAND-OFF: Report given to JR SHABAZZ.
--- NOTE | 2018-07-11 19:30 | NUR ---
NURSE NOTES: Received report from MELE Richter. Pt is resting in bed. In no acute distress. IV lines intact and patent. GT feeding well tolerated. Bed in lowest position, call light within reach. Will continue plan of care.
[2018-07-11 20:00] VITALS: BP 111/60
--- NOTE | 2018-07-11 20:29 | Physician Query ---
PHYSICIAN DOCUMENTATION QUERY CLARIFICATION OF ALTERATION OF MENTAL STATUS DIAGNOSIS OR CAUSE Dear Dr: Kayden Desai : Date: __07/11/18 MR #:_[id number] Patient Name: _ Admit Date: Documentation clarification is required to meet compliance, accuracy in coding and severity of illness reflection for your patient. There is clinical documentation of AMS with treatment and/or monitoring present in the medical record. Additional documentation is necessary to identify the underlying cause, if known (i.e., structural, cardiovascular, metabolic, environmental, behavioral, etc.) for this condition. A Pt 77/f complaint of altered mentation and coffee-ground emesis, pt was diagnosed with sepsis due to UTI. She was resuscitated with fluids. And transfusion and she has been more stabilized now. On 07/11 level of consciences improved. Lab: BUN 99H Ammonia 35H Hgb 5.9L K 5.2H Chloride 108H Ca 7.4L Rx: Nacl 1Lit x2 I/V(07/09) Dextrose 1 Lit,I/V Please document, if known, the appropriate diagnosis (cause of theAMS) on the progress notes or on this form as an addendum. (Sign and date all documentation ) [ ] Metabolic Encephalopathy [ ] Toxic Encephalopathy [ ] Hypertensive Encephalopathy [ ] other [ ] Unable to determine MD Signature: __ Date: If you have any questions, please contact the HIM Department ___. Thank You! This form is a permanent part of the medical record MTDD
[2018-07-12] VITALS: BP 123/69
--- NOTE | 2018-07-12 00:30 | Progress Note ---
DATE: 07/11/2018 CARDIOLOGY PROGRESS NOTE SUBJECTIVE: The patient remains with some congestion and occasional cough. No apparent shortness of breath. No obvious bleeding noted, but hemoglobin levels are decreasing. OBJECTIVE: VITAL SIGNS: Blood pressure 135/70, pulse 80, respirations 20, afebrile, and oxygen saturation on room air is 96%. GENERAL: Withdrawn, lethargic, but is arousable and responsive. LUNGS: Few rhonchi. No wheezing. HEART: Regular rhythm and rate. Normal S1, S2. A 1/6 systolic murmur. ABDOMEN: Soft. G-tube intact. EXTREMITIES: Trace dependent edema. LABORATORY DATA: Urine culture is positive for E. coli. White count 12, hemoglobin 7.5. Potassium 3.3, sodium 148, chloride 117, BUN 23, creatinine 0.7. Albumin 2.1. IMPRESSION: 1. Sepsis with recovering shock. 2. Healthcare-acquired pneumonia due to aspiration. 3. Urinary tract infection with E. coli. 4. Severe anemia due to GI bleeding. 5. Acute myocardial ischemia, resolved. 6. History of cerebrovascular accident due to brain aneurysm and subarachnoid hemorrhage. 7. Dehydration. 8. Hypernatremia. 9. Hyperchloremia. 10. Hypokalemia. 11. Severe protein-calorie malnutrition. 12. Dysphagia with G-tube. 13. Remains critical and guarded. PLAN: 1. Continue hypotonic IV fluids and replace potassium. 2. Recheck magnesium. 3. Antimicrobials per Infectious Disease [facility] consultant. 4. Respiratory hygiene. 5. Monitor hemoglobin. 6. Transfuse for further drop. 7. May need endoscopy, although will be at increased risk. 8. Continue proton pump inhibitor. Kayden Nichols M.D. DR: IRA JOB#: [id number] CC:
[2018-07-12 04:00] VITALS: BP 135/88
[2018-07-12] MEDS: D5 1/2NS w/KCL 10meq 1,000 ML IV SCH ×4 (05:06→19:17)
[2018-07-12 06:11] LABS: BASOPHILS % (AUTO) 0.5 % (0.0-2.0); EOSINOPHILS % (AUTO) 0.7 % (0.0-3.0); HEMATOCRIT 28.5 % (37.0-47.0); HEMOGLOBIN 9.6 G/DL (12.0-16.0); MEAN CORPUSCULAR VOLUME 89 FL (80-99); MONOCYTES % (AUTO) 5.7 % (1.0-10.0); NEUTROPHILS % (AUTO) 84.1 % (45.0-75.0); PLATELET COUNT 266 K/UL (150-450); WHITE BLOOD COUNT 9.9 K/UL (4.8-10.8)
[2018-07-12 06:44] LABS: ALANINE AMINOTRANSFERASE 27 U/L (12-78); ALBUMIN 2.2 G/DL (3.4-5.0); ALBUMIN/GLOBULIN RATIO 0.6 (1.0-2.7); ALKALINE PHOSPHATASE 55 U/L (46-116); ANION GAP 10 mmol/L (5-15); ASPARTATE AMINO TRANSFERASE 24 U/L (15-37); BILIRUBIN,TOTAL 0.4 MG/DL (0.2-1.0); BLOOD UREA NITROGEN 14 mg/dL (7-18); CALCIUM 7.3 MG/DL (8.5-10.1); CARBON DIOXIDE 23 MMOL/L (21-32); CHLORIDE 107 MMOL/L (98-107); CREATININE 0.5 MG/DL (0.55-1.30); POTASSIUM 3.2 MMOL/L (3.5-5.1); SODIUM 140 MMOL/L (136-145)
--- NOTE | 2018-07-12 07:23 | NUR ---
HAND-OFF: Report given to MELE Porter.
--- NOTE | 2018-07-12 07:23 | NUR ---
NURSE NOTES: I received the patient resting in bed. Bed in the lowest position and call light within reach. Patient does not display any signs of distress or SOB. I will continue to monitor the patient and implement care.
[2018-07-12 08:00] VITALS: BP 141/72
--- NOTE | 2018-07-12 08:20 | NUR ---
CASE MANAGEMENT:REVIEW 07/12/18 SI: SEPSIS. GIB. ANEMIA T 99.4 HR 85 RR 18 B/P 141/72 SATS 97% ON RA K 3.2 CR 0.5 GLU 109 CA 7.3 BNP 1103 IS: IVF @ 100 mL/HR PROTONIX IV QD CEFTRIAXONE IV Q24H : TELE STATUS DCP: FROM [facility]
[2018-07-12] MEDS: Pantoprazole Inj IVP SCH (08:37)
--- NOTE | 2018-07-12 09:40 | General Progress Note ---
Assessment/Plan Problem List: (1) Sepsis ICD Codes: A41.9 - Sepsis, unspecified organism SNOMED: 09404085 (2) Acute gastrointestinal bleeding ICD Codes: K92.2 - Gastrointestinal hemorrhage, unspecified SNOMED: 29883930 (3) Anemia ICD Codes: D64.9 - Anemia, unspecified SNOMED: 578925227 (4) Hypotension ICD Codes: I95.9 - Hypotension, unspecified SNOMED: 33998374 (5) GI (gastrointestinal bleed) ICD Codes: K92.2 - Gastrointestinal hemorrhage, unspecified SNOMED: 67633938 Status: stable Status Narrative PPI rx monitor for bleeding transfuse as needed abx follow up cultures Subjective ROS Limited/Unobtainable: No Constitutional: Reports: malaise, weakness HEENT: Reports: no symptoms Cardiovascular: Reports: no symptoms Respiratory: Reports: no symptoms Gastrointestinal/Abdominal: Reports: vomiting Genitourinary: Reports: no symptoms Neurologic/Psychiatric: Reports: pre-existing deficit Endocrine: Reports: no symptoms Hematologic/Lymphatic: Reports: no symptoms Allergies: Coded Allergies: No Known Allergies (Unverified , 07/09/18) All Systems: reviewed and negative except above Subjective no bleeding. given 1 unit prbcs yesterday. Objective Last 24 Hour Vital Signs Date Time Temp Pulse Resp B/P (MAP) Pulse Ox O2 Delivery O2 Flow Rate FiO2 07/12/18 09:00 Room Air 07/12/18 08:00 99.4 85 18 141/72 (95) 97 07/12/18 07:39 83 07/12/18 04:00 81 07/12/18 04:00 98.6 81 18 135/88 (104) 95 07/12/18 00:00 99.2 81 18 123/69 (87) 96 07/12/18 00:00 81 07/11/18 21:00 Room Air 07/11/18 20:00 87 07/11/18 20:00 98.8 87 18 111/60 (77) 98 07/11/18 16:00 83 07/11/18 15:56 97.7 84 20 131/63 (85) 98 07/11/18 15:53 Room Air 07/11/18 12:00 81 07/11/18 12:00 Room Air 07/11/18 12:00 97.7 80 20 135/70 (91) 96 Intake and Output 07/11/18 07/12/18 18:59 06:59 Intake Total 1185.0 ml 1230 ml Output Total 850 ml 9050 ml Balance 335.0 ml -7820 ml Free Water 60 ml 60 ml IV Total 1065.0 ml 900 ml Tube Feeding 60 ml 270 ml Output Urine Total 850 ml 9050 ml Laboratory Tests 07/11/18 14:18: White Blood Count 12.3H, Red Blood Count 2.49L, Hemoglobin 7.5L, Hematocrit 22.5L, Mean Corpuscular Volume 90, Mean Corpuscular Hemoglobin 30.2, Mean Corpuscular Hemoglobin Concent 33.4, Red Cell Distribution Width 13.5, Platelet Count 257, Mean Platelet Volume 6.3L, Neutrophils (%) (Auto) , Lymphocytes (%) ( Auto) , Monocytes (%) (Auto) , Eosinophils (%) (Auto) , Basophils (%) (Auto) , Differential Total Cells Counted 100, Neutrophils % (Manual) 86H, Lymphocytes % (Manual) 9L, Monocytes % (Manual) 5, Eosinophils % (Manual) 0, Basophils % ( Manual) 0, Band Neutrophils 0, Platelet Estimate Adequate, Platelet Morphology Normal, Polychromasia 1+, Hypochromasia 1+, Anisocytosis 1+ 07/12/18 04:56: White Blood Count 9.9, Red Blood Count 3.20L, Hemoglobin 9.6L, Hematocrit 28.5L , Mean Corpuscular Volume 89, Mean Corpuscular Hemoglobin 29.9, Mean Corpuscular Hemoglobin Concent 33.6, Red Cell Distribution Width 13.0, Platelet Count 266, Mean Platelet Volume 6.0L, Neutrophils (%) (Auto) 84.1H, Lymphocytes (%) (Auto) 9.0L, Monocytes (%) (Auto) 5.7, Eosinophils (%) (Auto) 0.7, Basophils (%) (Auto) 0.5, Sodium Level 140, Potassium Level 3.2L, Chloride Level 107, Carbon Dioxide Level 23, Anion Gap 10, Blood Urea Nitrogen 14, Creatinine 0.5L, Estimat Glomerular Filtration Rate , Glucose Level 109H, Calcium Level 7.3L, Magnesium Level 2.0, Total Bilirubin 0.4, Aspartate Amino Transf (AST/SGOT) 24, Alanine Aminotransferase (ALT/SGPT) 27, Alkaline Phosphatase 55, Pro-B-Type Natriuretic Peptide 1103H, Total Protein 5.6L, Albumin 2.2L, Globulin 3.4, Albumin/Globulin Ratio 0.6L Height (Feet): 5 Height (Inches): 2.00 Weight (Pounds): 150 General Appearance: WD/WN, lethargic, confused Neck: supple Cardiovascular: regular rhythm Respiratory/Chest: chest wall non-tender, lungs clear, normal breath sounds Abdomen: normal bowel sounds, non tender, soft Edema: no edema noted Arm (L), no edema noted Arm (R), no edema noted Leg (L), no edema noted Leg (R), no edema noted Pedal (L), no edema noted Pedal (R), no edema noted Generalized Miguel Walker MD Jul 12, 2018 09:40
--- NOTE | 2018-07-12 10:17 | Infectious Diseases Prog Note ---
Assessment/Plan Assessment/Plan antibiotics : ceftriaxone A 1. e.coli UTI 2. leucocytosis resolved 3. CVA 4. hypertension 5. SAH P 1. continue ceftriaxone 3 more days 2. will follow up cultures Subjective ROS Limited/Unobtainable: Yes Allergies: Coded Allergies: No Known Allergies (Unverified , 07/09/18) Objective Vital Signs Last 24 Hour Vital Signs Date Time Temp Pulse Resp B/P (MAP) Pulse Ox O2 Delivery O2 Flow Rate FiO2 07/12/18 09:00 Room Air 07/12/18 08:00 99.4 85 18 141/72 (95) 97 07/12/18 07:39 83 07/12/18 04:00 81 07/12/18 04:00 98.6 81 18 135/88 (104) 95 07/12/18 00:00 99.2 81 18 123/69 (87) 96 07/12/18 00:00 81 07/11/18 21:00 Room Air 07/11/18 20:00 87 07/11/18 20:00 98.8 87 18 111/60 (77) 98 07/11/18 16:00 83 07/11/18 15:56 97.7 84 20 131/63 (85) 98 07/11/18 15:53 Room Air 07/11/18 12:00 81 07/11/18 12:00 Room Air 07/11/18 12:00 97.7 80 20 135/70 (91) 96 Height (Feet): 5 Height (Inches): 2.00 Weight (Pounds): 150 Respiratory/Chest: lungs clear Cardiovascular: normal rate, regular rhythm, no gallop/murmur Abdomen: soft, non tender, other - GT Extremities: no edema Microbiology Date/Time Source Procedure Growth Status 07/09/18 14:00 Nasal Nares Left MRSA Culture - Final NO METHICILLIN RESISTANT STAPH AUREUS... Complete 07/09/18 10:50 Urine,Clean Catch Urine Culture - Final Escherichia Coli Complete 07/09/18 14:00 Rectum VRE Culture - Final NO VANCOMYCIN RESISTANT ENTEROCOCCUS ... Complete 07/09/18 14:00 Rectum - Final NO CARBAPENEM-RESISTANT ENTEROBACTERI... Complete Laboratory Tests Test 07/11/18 14:18 07/12/18 04:56 White Blood Count 12.3 K/UL (4.8-10.8) H 9.9 K/UL (4.8-10.8) Red Blood Count 2.49 M/UL (4.20-5.40) L 3.20 M/UL (4.20-5.40) L Hemoglobin 7.5 G/DL (12.0-16.0) L 9.6 G/DL (12.0-16.0) L Hematocrit 22.5 % (37.0-47.0) L 28.5 % (37.0-47.0) L Mean Corpuscular Volume 90 FL (80-99) 89 FL (80-99) Mean Corpuscular Hemoglobin 30.2 PG (27.0-31.0) 29.9 PG (27.0-31.0) Mean Corpuscular Hemoglobin Concent 33.4 G/DL (32.0-36.0) 33.6 G/DL (32.0-36.0) Red Cell Distribution Width 13.5 % (11.6-14.8) 13.0 % (11.6-14.8) Platelet Count 257 K/UL (150-450) 266 K/UL (150-450) Mean Platelet Volume 6.3 FL (6.5-10.1) L 6.0 FL (6.5-10.1) L Neutrophils (%) (Auto) % (45.0-75.0) 84.1 % (45.0-75.0) H Lymphocytes (%) (Auto) % (20.0-45.0) 9.0 % (20.0-45.0) L Monocytes (%) (Auto) % (1.0-10.0) 5.7 % (1.0-10.0) Eosinophils (%) (Auto) % (0.0-3.0) 0.7 % (0.0-3.0) Basophils (%) (Auto) % (0.0-2.0) 0.5 % (0.0-2.0) Differential Total Cells Counted 100 Neutrophils % (Manual) 86 % (45-75) H Lymphocytes % (Manual) 9 % (20-45) L Monocytes % (Manual) 5 % (1-10) Eosinophils % (Manual) 0 % (0-3) Basophils % (Manual) 0 % (0-2) Band Neutrophils 0 % (0-8) Platelet Estimate Adequate Platelet Morphology Normal Polychromasia 1+ Hypochromasia 1+ Anisocytosis 1+ Sodium Level 140 MMOL/L (136-145) Potassium Level 3.2 MMOL/L (3.5-5.1) L Chloride Level 107 MMOL/L (98-107) Carbon Dioxide Level 23 MMOL/L (21-32) Anion Gap 10 mmol/L (5-15) Blood Urea Nitrogen 14 mg/dL (7-18) Creatinine 0.5 MG/DL (0.55-1.30) L Estimat Glomerular Filtration Rate mL/min (>60) Glucose Level 109 MG/DL (74-106) H Calcium Level 7.3 MG/DL (8.5-10.1) L Magnesium Level 2.0 MG/DL (1.8-2.4) Total Bilirubin 0.4 MG/DL (0.2-1.0) Aspartate Amino Transf (AST/SGOT) 24 U/L (15-37) Alanine Aminotransferase (ALT/SGPT) 27 U/L (12-78) Alkaline Phosphatase 55 U/L (46-116) Pro-B-Type Natriuretic Peptide 1103 pg/mL (0-125) H Total Protein 5.6 G/DL (6.4-8.2) L Albumin 2.2 G/DL (3.4-5.0) L Globulin 3.4 g/dL Albumin/Globulin Ratio 0.6 (1.0-2.7) L Current Medications Medications (Trade) Dose Ordered Sig/Germain Route PRN Reason Start Time Stop Time Status Last Admin Dose Admin Ceftriaxone Sodium 1 gm/ Dextrose 55 ml @ 110 mls/hr Q24H IVPB 07/12/18 12:00 07/18/18 11:59 Dextrose/ Electrolytes 1,000 ml @ 100 mls/hr Q10H IV 07/11/18 17:00 08/09/18 18:59 07/12/18 05:06 Pantoprazole (Protonix) 40 mg DAILY IVP 07/12/18 09:00 08/09/18 08:59 07/12/18 08:37 Potassium Chloride (K-Dur) 40 meq ONCE ORAL 07/12/18 09:45 07/12/18 10:45 Armaan Gatica MD Jul 12, 2018 10:17
[2018-07-12] MEDS: cefTRIAXone 1 GM in D5W 55 ML IVPB SCH (11:22)
[2018-07-12 11:40] VITALS: BP 154/79
--- NOTE | 2018-07-12 11:51 | NUR ---
NURSE NOTES: Dr. Walker made aware of patient's blood pressure and temperature. The patient's temperature is slightly elevated and there are not any prn medications ordered for a temperature. Patient's blood pressure is slightly elevated and she does not have any blood pressure medications ordered. Dr. Walker is aware of the patient's status and there were not any new orders received.
--- NOTE | 2018-07-12 13:49 | General Progress Note ---
Assessment/Plan Assessment/Plan Assessment - UGIB - clinically resolved - Anemia - Dysphagia, s/p Prior GT - CVA/OBS - DNR Recommendations - Follow CBC - Hold anticoagulation - PPI - Discussed with Son - requested no EGD for now unless re-bleeds Subjective Allergies: Coded Allergies: No Known Allergies (Unverified , 07/09/18) Subjective Above noted d/w RN no further GIB tolerating TF Objective Last 24 Hour Vital Signs Date Time Temp Pulse Resp B/P (MAP) Pulse Ox O2 Delivery O2 Flow Rate FiO2 07/12/18 12:04 84 07/12/18 11:40 99.5 85 20 154/79 (104) 96 07/12/18 09:00 Room Air 07/12/18 08:00 99.4 85 18 141/72 (95) 97 07/12/18 07:39 83 07/12/18 04:00 81 07/12/18 04:00 98.6 81 18 135/88 (104) 95 07/12/18 00:00 99.2 81 18 123/69 (87) 96 07/12/18 00:00 81 07/11/18 21:00 Room Air 07/11/18 20:00 87 07/11/18 20:00 98.8 87 18 111/60 (77) 98 07/11/18 16:00 83 07/11/18 15:56 97.7 84 20 131/63 (85) 98 07/11/18 15:53 Room Air Intake and Output 07/11/18 07/12/18 18:59 06:59 Intake Total 1185.0 ml 1230 ml Output Total 850 ml 9050 ml Balance 335.0 ml -7820 ml Free Water 60 ml 60 ml IV Total 1065.0 ml 900 ml Tube Feeding 60 ml 270 ml Output Urine Total 850 ml 9050 ml Laboratory Tests 07/11/18 14:18: White Blood Count 12.3H, Red Blood Count 2.49L, Hemoglobin 7.5L, Hematocrit 22.5L, Mean Corpuscular Volume 90, Mean Corpuscular Hemoglobin 30.2, Mean Corpuscular Hemoglobin Concent 33.4, Red Cell Distribution Width 13.5, Platelet Count 257, Mean Platelet Volume 6.3L, Neutrophils (%) (Auto) , Lymphocytes (%) ( Auto) , Monocytes (%) (Auto) , Eosinophils (%) (Auto) , Basophils (%) (Auto) , Differential Total Cells Counted 100, Neutrophils % (Manual) 86H, Lymphocytes % (Manual) 9L, Monocytes % (Manual) 5, Eosinophils % (Manual) 0, Basophils % ( Manual) 0, Band Neutrophils 0, Platelet Estimate Adequate, Platelet Morphology Normal, Polychromasia 1+, Hypochromasia 1+, Anisocytosis 1+ 07/12/18 04:56: White Blood Count 9.9, Red Blood Count 3.20L, Hemoglobin 9.6L, Hematocrit 28.5L , Mean Corpuscular Volume 89, Mean Corpuscular Hemoglobin 29.9, Mean Corpuscular Hemoglobin Concent 33.6, Red Cell Distribution Width 13.0, Platelet Count 266, Mean Platelet Volume 6.0L, Neutrophils (%) (Auto) 84.1H, Lymphocytes (%) (Auto) 9.0L, Monocytes (%) (Auto) 5.7, Eosinophils (%) (Auto) 0.7, Basophils (%) (Auto) 0.5, Sodium Level 140, Potassium Level 3.2L, Chloride Level 107, Carbon Dioxide Level 23, Anion Gap 10, Blood Urea Nitrogen 14, Creatinine 0.5L, Estimat Glomerular Filtration Rate , Glucose Level 109H, Calcium Level 7.3L, Magnesium Level 2.0, Total Bilirubin 0.4, Aspartate Amino Transf (AST/SGOT) 24, Alanine Aminotransferase (ALT/SGPT) 27, Alkaline Phosphatase 55, Pro-B-Type Natriuretic Peptide 1103H, Total Protein 5.6L, Albumin 2.2L, Globulin 3.4, Albumin/Globulin Ratio 0.6L Height (Feet): 5 Height (Inches): 2.00 Weight (Pounds): 150 Objective Debilitated woman NCAT supple CTA RR abd soft GT no edema OBS Tonia Kim MD Jul 12, 2018 13:49
[2018-07-12 15:47] VITALS: BP 126/72
[2018-07-12] MEDS ORDERED: NS 275ml ONE ×2 (17:18→17:20)
[2018-07-12] MEDS ORDERED: D5 1/2NS 1000ml IV ONE (17:18)
[2018-07-12] MEDS ORDERED: Tubing IV Secondary IV ONE (17:18)
[2018-07-12] MEDS ORDERED: Tubing IV Blood Pump IV ONE (17:20)
--- NOTE | 2018-07-12 19:12 | NUR ---
HAND-OFF: Report given to MELE Gonzalez.
--- NOTE | 2018-07-12 19:15 | NUR ---
NURSE NOTES: Received report from Gurvinder Mujica RN. Patient in bed asleep with HOB elevated at 30-45'for aspiration precaution. Patient is non verbal but is respnsive to verbal and tactile stimuli. No S/S of acute pain or discomfort at this time; kept clean, dry, and comfortable in bed. IV line intact and patent and is running on prescribed fluids with no A/R noted and is receiving GTF as ordered. Placed on continuous cardiac monitoring per protocol and is on SR at this time. Safety precaution in place; siderails X3 up, call light within reach, bed in lowest position, brakes and alarm on at all times. Needs and wants anticipated and attended, will continue plan of care and monitor for any changes in condition noted.
[2018-07-12 20:00] VITALS: BP 132/75
--- NOTE | 2018-07-12 20:30 | Progress Note ---
DATE: 07/12/2018 CARDIOLOGY PROGRESS NOTE SUBJECTIVE: The patient has no signs of bleeding. A unit of packed red blood cells was transfused yesterday. OBJECTIVE: VITAL SIGNS: T-max 99.4, blood pressure 141/72, heart rate 85, and respiratory rate 18. LUNGS: Bilateral breath sounds. Few rhonchi. HEART: Regular rhythm and rate. Normal S1, S2. ABDOMEN: Soft. G-tube intact. EXTREMITIES: Trace edema. LABORATORY DATA: White count 9.9 and hemoglobin 9.6. Sodium 140, potassium 3.2, magnesium 2, BUN 14, creatinine 0.5, and bicarb 23. Albumin 2.2.- Pro natriuretic peptide is up to 1100. IMPRESSION: 1. Gastrointestinal bleed. 2. Anemia. 3. Aspiration pneumonia. 4. Dysphagia with G-tube. 5. Advanced dementia. 6. Sepsis with recovered shock. 7. Urinary tract infection. 8. Acute myocardial ischemia, resolved. 9. History of subarachnoid hemorrhage. 10. Hypokalemia. 11. Acute on chronic diastolic congestive heart failure. PLAN: 1. Decrease intravenous fluids. 2. Replace potassium. 3. Antimicrobials. 4. Respiratory hygiene. 5. Monitor hemoglobin. 6. Conservative management. 7. Add VA inhibitor. Kayden Nichols M.D. DR: JUAN JOB#: [id number] CC:
[2018-07-12] MEDS: Carvedilol 6.25mg Tab GT SCH (20:49)
[2018-07-13] VITALS: BP 119/73
[2018-07-13 04:00] VITALS: BP 132/80
--- NOTE | 2018-07-13 04:41 | NUR ---
NURSE NOTES: Patient asleep with no S/S of distress at this time. Will continue to monitor
--- NOTE | 2018-07-13 07:10 | NUR ---
NURSE NOTES: I received the patient resting in bed. Patient responds to name. Patient's g-tube in place and infusing well. IV sites patent. Bed in the lowest position and call light within reach. Patient does not display any signs of distress or SOB.
--- NOTE | 2018-07-13 07:29 | NUR ---
HAND-OFF: Report given to Gurvinder Mujica RN. Patient in bed in stable condition, endorsed plan of care.
[2018-07-13 07:58] LABS: BASOPHILS % (AUTO) 0.4 % (0.0-2.0); EOSINOPHILS % (AUTO) 1.3 % (0.0-3.0); HEMATOCRIT 28.1 % (37.0-47.0); HEMOGLOBIN 9.9 G/DL (12.0-16.0); MEAN CORPUSCULAR VOLUME 87 FL (80-99); MONOCYTES % (AUTO) 6.6 % (1.0-10.0); NEUTROPHILS % (AUTO) 81.8 % (45.0-75.0); PLATELET COUNT 287 K/UL (150-450); RED BLOOD COUNT 3.22 M/UL (4.20-5.40); RED CELL DISTRIBUTION WIDTH 13.6 % (11.6-14.8); WHITE BLOOD COUNT 10.7 K/UL (4.8-10.8)
[2018-07-13 08:00] VITALS: BP 126/71
[2018-07-13] MEDS: D5 1/2NS w/KCL 10meq 1,000 ML IV SCH (09:36)
[2018-07-13] MEDS: Pantoprazole Inj IVP SCH (09:36)
[2018-07-13] MEDS: Carvedilol 6.25mg Tab GT SCH ×2 (09:36→21:51)
--- NOTE | 2018-07-13 09:51 | NUR ---
NURSE NOTES: Morning medications administered. Patient's g-tube flushing well and g-tube dressing changed. Patient resting in bed and does not display any signs of distress or SOB.
--- NOTE | 2018-07-13 11:40 | NUR ---
NURSE NOTES: Patient cleaned and repositioned in bed. OB stool collected and sent to lab. Dr. Kim made aware of the black tarry stool. G-tube flushing well and infusing well. Bed in the lowest position and call light within reach.
[2018-07-13] MEDS: cefTRIAXone 1 GM in D5W 55 ML IVPB SCH (11:51)
[2018-07-13 12:00] VITALS: BP 119/74
--- NOTE | 2018-07-13 12:05 | Infectious Diseases Prog Note ---
Assessment/Plan Assessment/Plan A 1. E.coli UTI 2. leucocytosis resolved 3. CVA 4. hypertension 5. SAH 6. Anemia P 1. continue ceftriaxone 2 more days 2. will follow up cultures Subjective ROS Limited/Unobtainable: Yes Constitutional: Reports: no symptoms Allergies: Coded Allergies: No Known Allergies (Unverified , 07/09/18) Objective Vital Signs Last 24 Hour Vital Signs Date Time Temp Pulse Resp B/P (MAP) Pulse Ox O2 Delivery O2 Flow Rate FiO2 07/13/18 09:36 84 126/71 07/13/18 09:00 Room Air 07/13/18 08:00 98.6 22 126/71 (89) 97 07/13/18 07:38 82 07/13/18 04:00 84 07/13/18 04:00 98.5 83 17 132/80 (97) 98 07/13/18 00:00 79 07/13/18 00:00 98.8 81 17 119/73 (88) 97 07/12/18 21:00 Room Air 07/12/18 20:49 84 132/75 07/12/18 20:00 98.6 84 16 132/75 (94) 97 07/12/18 20:00 84 07/12/18 15:47 99.6 85 18 126/72 (90) 98 07/12/18 15:29 85 Height (Feet): 5 Height (Inches): 2.00 Weight (Pounds): 150 General Appearance: no acute distress HEENT: other - scar of frontal craniotomy Respiratory/Chest: lungs clear Cardiovascular: normal rate Abdomen: soft, non tender, other - GT feeding Extremities: no edema Neurologic/Psychiatric: unresponsiveness Laboratory Tests Test 07/13/18 06:27 07/13/18 11:00 White Blood Count 10.7 K/UL (4.8-10.8) Red Blood Count 3.22 M/UL (4.20-5.40) L Hemoglobin 9.9 G/DL (12.0-16.0) L Hematocrit 28.1 % (37.0-47.0) L Mean Corpuscular Volume 87 FL (80-99) Mean Corpuscular Hemoglobin 30.8 PG (27.0-31.0) Mean Corpuscular Hemoglobin Concent 35.3 G/DL (32.0-36.0) Red Cell Distribution Width 13.6 % (11.6-14.8) Platelet Count 287 K/UL (150-450) Mean Platelet Volume 6.4 FL (6.5-10.1) L Neutrophils (%) (Auto) 81.8 % (45.0-75.0) H Lymphocytes (%) (Auto) 10.0 % (20.0-45.0) L Monocytes (%) (Auto) 6.6 % (1.0-10.0) Eosinophils (%) (Auto) 1.3 % (0.0-3.0) Basophils (%) (Auto) 0.4 % (0.0-2.0) Stool Occult Blood Pending Current Medications Medications (Trade) Dose Ordered Sig/Germain Route PRN Reason Start Time Stop Time Status Last Admin Dose Admin Carvedilol (Coreg) 6.25 mg EVERY 12 HOURS GT 07/12/18 21:00 08/11/18 20:59 07/13/18 09:36 Ceftriaxone Sodium 1 gm/ Dextrose 55 ml @ 110 mls/hr Q24H IVPB 07/12/18 12:00 07/16/18 11:59 07/13/18 11:51 Dextrose/ Electrolytes 1,000 ml @ 60 mls/hr [id number] IV 07/12/18 19:10 08/11/18 19:09 07/13/18 09:36 Pantoprazole (Protonix) 40 mg DAILY IVP 07/12/18 09:00 08/09/18 08:59 07/13/18 09:36 Placido Aranda MD Jul 13, 2018 12:05
--- NOTE | 2018-07-13 12:12 | General Progress Note ---
Assessment/Plan Assessment/Plan Assessment - UGIB - clinically resolved - Dark stool presumed from initial GIB few days ago - Anemia, stable - Dysphagia, s/p Prior GT - CVA/OBS - DNR Recommendations - Follow CBC - Hold anticoagulation - PPI - no EGD for now per son instructions unless re-bleeds - laxative to clear out old blood Subjective Allergies: Coded Allergies: No Known Allergies (Unverified , 07/09/18) Subjective Above noted d/w RN - dark stools noted H&H stable tolerating TF Objective Last 24 Hour Vital Signs Date Time Temp Pulse Resp B/P (MAP) Pulse Ox O2 Delivery O2 Flow Rate FiO2 07/13/18 09:36 84 126/71 07/13/18 09:00 Room Air 07/13/18 08:00 98.6 22 126/71 (89) 97 07/13/18 07:38 82 07/13/18 04:00 84 07/13/18 04:00 98.5 83 17 132/80 (97) 98 07/13/18 00:00 79 07/13/18 00:00 98.8 81 17 119/73 (88) 97 07/12/18 21:00 Room Air 07/12/18 20:49 84 132/75 07/12/18 20:00 98.6 84 16 132/75 (94) 97 07/12/18 20:00 84 07/12/18 15:47 99.6 85 18 126/72 (90) 98 07/12/18 15:29 85 Intake and Output 07/12/18 07/13/18 18:59 06:59 Intake Total 1505 ml 50 ml Output Total 500 ml 1550 ml Balance 1005 ml -1500 ml Free Water 60 ml IV Total 955 ml Tube Feeding 490 ml 50 ml Output Urine Total 500 ml 1550 ml Laboratory Tests 07/13/18 06:27: White Blood Count 10.7, Red Blood Count 3.22L, Hemoglobin 9.9L, Hematocrit 28.1L , Mean Corpuscular Volume 87, Mean Corpuscular Hemoglobin 30.8, Mean Corpuscular Hemoglobin Concent 35.3, Red Cell Distribution Width 13.6, Platelet Count 287, Mean Platelet Volume 6.4L, Neutrophils (%) (Auto) 81.8H, Lymphocytes (%) (Auto) 10.0L, Monocytes (%) (Auto) 6.6, Eosinophils (%) (Auto) 1.3, Basophils (%) (Auto) 0.4 07/13/18 11:00: Stool Occult Blood [Pending] Height (Feet): 5 Height (Inches): 2.00 Weight (Pounds): 150 Objective Debilitated woman NCAT supple CTA RR abd soft GT no edema OBS Tonia Kim MD Jul 13, 2018 12:12
[2018-07-13] MEDS ORDERED: Sorbitol Solution UD 30ml ORAL SCH (12:29)
--- NOTE | 2018-07-13 14:23 | General Progress Note ---
Assessment/Plan Problem List: (1) Sepsis ICD Codes: A41.9 - Sepsis, unspecified organism SNOMED: 08375222 (2) Acute gastrointestinal bleeding ICD Codes: K92.2 - Gastrointestinal hemorrhage, unspecified SNOMED: 88893001 (3) Anemia ICD Codes: D64.9 - Anemia, unspecified SNOMED: 770687976 (4) Hypotension ICD Codes: I95.9 - Hypotension, unspecified SNOMED: 43387743 (5) GI (gastrointestinal bleed) ICD Codes: K92.2 - Gastrointestinal hemorrhage, unspecified SNOMED: 94460123 Status: stable, progressing Assessment/Plan monitor h/h ppi abx BP rx per cards Subjective ROS Limited/Unobtainable: No Constitutional: Reports: malaise, weakness HEENT: Reports: no symptoms Cardiovascular: Reports: no symptoms Respiratory: Reports: no symptoms Gastrointestinal/Abdominal: Reports: no symptoms Genitourinary: Reports: no symptoms Neurologic/Psychiatric: Reports: pre-existing deficit, seizure Endocrine: Reports: no symptoms Hematologic/Lymphatic: Reports: no symptoms Allergies: Coded Allergies: No Known Allergies (Unverified , 07/09/18) All Systems: reviewed and negative except above Subjective no bleeding. no cp/sob. no fever. Objective Last 24 Hour Vital Signs Date Time Temp Pulse Resp B/P (MAP) Pulse Ox O2 Delivery O2 Flow Rate FiO2 07/13/18 12:00 98.4 20 119/74 (89) 100 07/13/18 11:34 79 07/13/18 09:36 84 126/71 07/13/18 09:00 Room Air 07/13/18 08:00 98.6 22 126/71 (89) 97 07/13/18 07:38 82 07/13/18 04:00 84 07/13/18 04:00 98.5 83 17 132/80 (97) 98 07/13/18 00:00 79 07/13/18 00:00 98.8 81 17 119/73 (88) 97 07/12/18 21:00 Room Air 07/12/18 20:49 84 132/75 07/12/18 20:00 98.6 84 16 132/75 (94) 97 07/12/18 20:00 84 07/12/18 15:47 99.6 85 18 126/72 (90) 98 07/12/18 15:29 85 Intake and Output 07/12/18 07/13/18 18:59 06:59 Intake Total 1505 ml 50 ml Output Total 500 ml 1550 ml Balance 1005 ml -1500 ml Free Water 60 ml IV Total 955 ml Tube Feeding 490 ml 50 ml Output Urine Total 500 ml 1550 ml Laboratory Tests 07/13/18 06:27: White Blood Count 10.7, Red Blood Count 3.22L, Hemoglobin 9.9L, Hematocrit 28.1L , Mean Corpuscular Volume 87, Mean Corpuscular Hemoglobin 30.8, Mean Corpuscular Hemoglobin Concent 35.3, Red Cell Distribution Width 13.6, Platelet Count 287, Mean Platelet Volume 6.4L, Neutrophils (%) (Auto) 81.8H, Lymphocytes (%) (Auto) 10.0L, Monocytes (%) (Auto) 6.6, Eosinophils (%) (Auto) 1.3, Basophils (%) (Auto) 0.4 07/13/18 11:00: Stool Occult Blood [Pending] Height (Feet): 5 Height (Inches): 2.00 Weight (Pounds): 150 Objective General Appearance: WD/WN, lethargic, confused Neck: supple Cardiovascular: regular rhythm Respiratory/Chest: chest wall non-tender, lungs clear, normal breath sounds Abdomen: normal bowel sounds, non tender, soft Edema: no edema noted Arm (L), no edema noted Arm (R), no edema noted Leg (L), no edema noted Leg (R), no edema noted Pedal (L), no edema noted Pedal (R), no edema noted Generalized Miguel Walker MD Jul 13, 2018 14:23
[2018-07-13 16:00] VITALS: BP 145/84
--- NOTE | 2018-07-13 17:25 | NUR ---
CASE MANAGEMENT: REVIEW SI: SEPSIS . GI BLEED T 98.9 HR 81 RR 18 BP 145/84 SAT 97% ROOM AIR H/H 9.9/28.1 IS: COREG GT Q12HR D5 1/2 NS w/KCl 10mEq IVF CEFTRIAXONE IV Q12HR PROTONIX IV QD TELEMETRY UNIT STATUS DCP: [facility]
--- NOTE | 2018-07-13 19:37 | NUR ---
HAND-OFF: Report given to Savana Francis RN.
[2018-07-13 20:00] VITALS: BP 117/62
--- NOTE | 2018-07-13 20:25 | NUR ---
NURSE NOTES: received pt from day shift nurse. pt sleeping, no acute distress noted, no s/s of pain or disconfort. safety precaution in place. will continue to monitor pt.
--- NOTE | 2018-07-13 21:10 | NUR ---
Dr phillips gave order KCL 20 meq. med will be administrated.
[2018-07-14] VITALS: BP 107/63
--- NOTE | 2018-07-14 00:58 | NUR ---
NURSE NOTES: pt in bed, no acute distress noted. will continue to monitor
--- NOTE | 2018-07-14 03:45 | Progress Note ---
DATE: 07/13/2018 CARDIOLOGY PROGRESS NOTE SUBJECTIVE: The patient has no chest pain or shortness of breath. No signs of new bleeding noted. OBJECTIVE: VITAL SIGNS: Blood pressure 119/74, heart rate 79, respiratory rate 20, and afebrile. Monitored rhythm, sinus. HEENT: Temporal wasting. Pale conjunctivae. LUNGS: Clear. CARDIAC: Regular. Normal S1, S2. ABDOMEN: Soft. G-tube intact. EXTREMITIES: Trace dependent edema. LABORATORY DATA: White count 10.7, hemoglobin 9.9. Repeat chemistry panel is pending. IMPRESSION: 1. Severe anemia, status post transfusion. 2. GI bleeding, resolved. 3. Dysphagia, with G-tube. 4. Severe sepsis with recovered shock. 5. Acute myocardial ischemia, resolved. 6. History of subarachnoid hemorrhage with advanced dementia and encephalopathy. 7. Acute on chronic diastolic congestive heart failure, clinically compensated. PLAN: 1. Await stool occult blood test. 2. Conservative management. 3. Rebleeding may warrant endoscopy. 4. Continue off anticoagulation and anti-platelet drugs. 5. Antimicrobials. 6. Follow up chemistry panel. 7. Replace electrolytes as needed. Teresa Davis JOB#: [id number] CC:
[2018-07-14 04:00] VITALS: BP 112/76
[2018-07-14] MEDS: D5 1/2NS w/KCL 10meq 1,000 ML IV SCH ×2 (05:00→21:01)
--- NOTE | 2018-07-14 06:36 | NUR ---
NURSE NOTES: pt remains stable. no acute distress noted, all needs met during my shift. will endorse incoming nurse.
--- NOTE | 2018-07-14 07:10 | NUR ---
NURSE NOTES: I received the patient resting in bed. Patient did not display any signs of distress or SOB. Bed in the lowest position and call light within reach.
--- NOTE | 2018-07-14 07:37 | NUR ---
HAND-OFF: Report given to MELE Porter.
[2018-07-14 07:59] LABS: BASOPHILS % (AUTO) 0.4 % (0.0-2.0); EOSINOPHILS % (AUTO) 1.5 % (0.0-3.0); HEMOGLOBIN 10.2 G/DL (12.0-16.0); LYMPHOCYTES % (AUTO) 11.6 % (20.0-45.0); MEAN CORPUSCULAR VOLUME 89 FL (80-99); MONOCYTES % (AUTO) 7.4 % (1.0-10.0); PLATELET COUNT 303 K/UL (150-450); RED BLOOD COUNT 3.38 M/UL (4.20-5.40); RED CELL DISTRIBUTION WIDTH 14.6 % (11.6-14.8); WHITE BLOOD COUNT 10.5 K/UL (4.8-10.8)
[2018-07-14 08:00] VITALS: BP 167/87
--- NOTE | 2018-07-14 08:20 | General Progress Note ---
Assessment/Plan Problem List: (1) Sepsis ICD Codes: A41.9 - Sepsis, unspecified organism SNOMED: 88216750 (2) Acute gastrointestinal bleeding ICD Codes: K92.2 - Gastrointestinal hemorrhage, unspecified SNOMED: 85124175 (3) Anemia ICD Codes: D64.9 - Anemia, unspecified SNOMED: 362358930 (4) Hypotension ICD Codes: I95.9 - Hypotension, unspecified SNOMED: 80768001 (5) GI (gastrointestinal bleed) ICD Codes: K92.2 - Gastrointestinal hemorrhage, unspecified SNOMED: 92136949 Status: stable Assessment/Plan monitor h/h off anticoag ppi abx BP rx per cards stool ob results pending- will follow up Subjective ROS Limited/Unobtainable: No Constitutional: Reports: malaise, weakness HEENT: Reports: no symptoms Cardiovascular: Reports: no symptoms Respiratory: Reports: no symptoms Gastrointestinal/Abdominal: Reports: vomiting Genitourinary: Reports: no symptoms Neurologic/Psychiatric: Reports: pre-existing deficit Endocrine: Reports: no symptoms Hematologic/Lymphatic: Reports: no symptoms Allergies: Coded Allergies: No Known Allergies (Unverified , 07/09/18) All Systems: reviewed and negative except above Subjective no bleeding. h/h remains stable. no cp/sob. no fever. nonverbal Objective Last 24 Hour Vital Signs Date Time Temp Pulse Resp B/P (MAP) Pulse Ox O2 Delivery O2 Flow Rate FiO2 07/14/18 04:00 83 07/14/18 04:00 98.8 20 112/76 (88) 99 07/14/18 00:00 73 07/14/18 00:00 97.8 18 107/63 (78) 96 07/13/18 21:51 83 124/81 07/13/18 21:00 Room Air 07/13/18 20:00 83 07/13/18 20:00 98.5 18 117/62 (80) 95 07/13/18 16:00 98.9 18 145/84 (104) 97 07/13/18 15:38 81 07/13/18 12:00 98.4 20 119/74 (89) 100 07/13/18 11:34 79 07/13/18 09:36 84 126/71 07/13/18 09:00 Room Air Intake and Output 07/13/18 07/14/18 19:00 07:00 Intake Total 1200 ml 1030 ml Output Total 1500 ml 1100 ml Balance -300 ml -70 ml IV Total 600 ml 480 ml Tube Feeding 600 ml 550 ml Output Urine Total 1500 ml 1100 ml # Bowel Movements 2 2 Laboratory Tests 07/13/18 11:00: Stool Occult Blood [Pending] 07/14/18 05:56: White Blood Count 10.5, Red Blood Count 3.38L, Hemoglobin 10.2L, Hematocrit 30.0L, Mean Corpuscular Volume 89, Mean Corpuscular Hemoglobin 30.1, Mean Corpuscular Hemoglobin Concent 33.9, Red Cell Distribution Width 14.6, Platelet Count 303, Mean Platelet Volume 6.3L, Neutrophils (%) (Auto) 79.0H, Lymphocytes (%) (Auto) 11.6L, Monocytes (%) (Auto) 7.4, Eosinophils (%) (Auto) 1.5, Basophils (%) (Auto) 0.4, Sodium Level [Pending], Potassium Level [Pending], Chloride Level [Pending], Carbon Dioxide Level [Pending], Blood Urea Nitrogen [ Pending], Creatinine [Pending], Estimat Glomerular Filtration Rate [Pending], Glucose Level [Pending], Calcium Level [Pending], Magnesium Level [Pending], Total Bilirubin [Pending], Aspartate Amino Transf (AST/SGOT) [Pending], Alanine Aminotransferase (ALT/SGPT) [Pending], Alkaline Phosphatase [Pending], Pro-B- Type Natriuretic Peptide [Pending], Total Protein [Pending], Albumin [Pending], Globulin [Pending] Height (Feet): 5 Height (Inches): 2.00 Weight (Pounds): 150 Objective General Appearance: WD/WN, lethargic, confused Neck: supple Cardiovascular: regular rhythm Respiratory/Chest: chest wall non-tender, lungs clear, normal breath sounds Abdomen: normal bowel sounds, non tender, soft Edema: no edema noted Arm (L), no edema noted Arm (R), no edema noted Leg (L), no edema noted Leg (R), no edema noted Pedal (L), no edema noted Pedal (R), no edema noted Generalized Miguel Walker MD Jul 14, 2018 08:20
[2018-07-14 08:37] LABS: ALANINE AMINOTRANSFERASE 35 U/L (12-78); ALBUMIN/GLOBULIN RATIO 0.6 (1.0-2.7); ALKALINE PHOSPHATASE 72 U/L (46-116); ANION GAP 11 mmol/L (5-15); ASPARTATE AMINO TRANSFERASE 24 U/L (15-37); BILIRUBIN,TOTAL 0.2 MG/DL (0.2-1.0); BLOOD UREA NITROGEN 11 mg/dL (7-18); CALCIUM 8.1 MG/DL (8.5-10.1); CARBON DIOXIDE 22 MMOL/L (21-32); CHLORIDE 103 MMOL/L (98-107); CREATININE 0.6 MG/DL (0.55-1.30); POTASSIUM 3.8 MMOL/L (3.5-5.1); SODIUM 136 MMOL/L (136-145)
[2018-07-14] MEDS: Pantoprazole Inj IVP SCH (08:42)
[2018-07-14] MEDS: Carvedilol 6.25mg Tab GT SCH ×2 (08:42→20:22)
[2018-07-14 12:00] VITALS: BP 108/68
[2018-07-14] MEDS: cefTRIAXone 1 GM in D5W 55 ML IVPB SCH (12:06)
--- NOTE | 2018-07-14 13:32 | NUR ---
*-* INSURANCE *-* ALL CLINICALS AND REVIEW HAVE BEEN FAXED TO: NEHA/LOBITO: PEYMAN P- [phone] [phone] A- [phone]
--- NOTE | 2018-07-14 13:34 | Infectious Diseases Prog Note ---
Assessment/Plan Assessment/Plan A 1. E.coli UTI 2. leucocytosis resolved 3. CVA 4. hypertension 5. SAH 6. Anemia 7. GI bleeding P 1. continue ceftriaxone 1 more day 2. will follow up cultures Subjective ROS Limited/Unobtainable: Yes Allergies: Coded Allergies: No Known Allergies (Unverified , 07/09/18) Objective Vital Signs Last 24 Hour Vital Signs Date Time Temp Pulse Resp B/P (MAP) Pulse Ox O2 Delivery O2 Flow Rate FiO2 07/14/18 12:00 99.9 17 108/68 (81) 97 07/14/18 09:00 Room Air 07/14/18 08:42 83 167/87 07/14/18 08:00 98.6 17 167/87 (113) 97 07/14/18 07:49 89 07/14/18 04:00 83 07/14/18 04:00 98.8 20 112/76 (88) 99 07/14/18 00:00 73 07/14/18 00:00 97.8 18 107/63 (78) 96 07/13/18 21:51 83 124/81 07/13/18 21:00 Room Air 07/13/18 20:00 83 07/13/18 20:00 98.5 18 117/62 (80) 95 07/13/18 16:00 98.9 18 145/84 (104) 97 07/13/18 15:38 81 Height (Feet): 5 Height (Inches): 2.00 Weight (Pounds): 150 HEENT: mucous membranes moist Respiratory/Chest: lungs clear Cardiovascular: normal rate Abdomen: soft, non tender, other - GT feeding Extremities: no edema Neurologic/Psychiatric: unresponsiveness Laboratory Tests Test 07/14/18 05:56 White Blood Count 10.5 K/UL (4.8-10.8) Red Blood Count 3.38 M/UL (4.20-5.40) L Hemoglobin 10.2 G/DL (12.0-16.0) L Hematocrit 30.0 % (37.0-47.0) L Mean Corpuscular Volume 89 FL (80-99) Mean Corpuscular Hemoglobin 30.1 PG (27.0-31.0) Mean Corpuscular Hemoglobin Concent 33.9 G/DL (32.0-36.0) Red Cell Distribution Width 14.6 % (11.6-14.8) Platelet Count 303 K/UL (150-450) Mean Platelet Volume 6.3 FL (6.5-10.1) L Neutrophils (%) (Auto) 79.0 % (45.0-75.0) H Lymphocytes (%) (Auto) 11.6 % (20.0-45.0) L Monocytes (%) (Auto) 7.4 % (1.0-10.0) Eosinophils (%) (Auto) 1.5 % (0.0-3.0) Basophils (%) (Auto) 0.4 % (0.0-2.0) Sodium Level 136 MMOL/L (136-145) Potassium Level 3.8 MMOL/L (3.5-5.1) Chloride Level 103 MMOL/L (98-107) Carbon Dioxide Level 22 MMOL/L (21-32) Anion Gap 11 mmol/L (5-15) Blood Urea Nitrogen 11 mg/dL (7-18) Creatinine 0.6 MG/DL (0.55-1.30) Estimat Glomerular Filtration Rate mL/min (>60) Glucose Level 125 MG/DL (74-106) H Calcium Level 8.1 MG/DL (8.5-10.1) L Magnesium Level 2.0 MG/DL (1.8-2.4) Total Bilirubin 0.2 MG/DL (0.2-1.0) Aspartate Amino Transf (AST/SGOT) 24 U/L (15-37) Alanine Aminotransferase (ALT/SGPT) 35 U/L (12-78) Alkaline Phosphatase 72 U/L (46-116) Pro-B-Type Natriuretic Peptide 311 pg/mL (0-125) H Total Protein 5.4 G/DL (6.4-8.2) L Albumin 2.0 G/DL (3.4-5.0) L Globulin 3.4 g/dL Albumin/Globulin Ratio 0.6 (1.0-2.7) L Current Medications Medications (Trade) Dose Ordered Sig/Germain Route PRN Reason Start Time Stop Time Status Last Admin Dose Admin Carvedilol (Coreg) 6.25 mg EVERY 12 HOURS GT 07/12/18 21:00 08/11/18 20:59 07/14/18 08:42 Ceftriaxone Sodium 1 gm/ Dextrose 55 ml @ 110 mls/hr Q24H IVPB 07/12/18 12:00 07/16/18 11:59 07/14/18 12:06 Dextrose/ Electrolytes 1,000 ml @ 60 mls/hr [id number] IV 07/12/18 19:10 08/11/18 19:09 07/14/18 05:00 Pantoprazole (Protonix) 40 mg DAILY IVP 07/12/18 09:00 08/09/18 08:59 07/14/18 08:42 Placido Aranda MD Jul 14, 2018 13:34
--- NOTE | 2018-07-14 15:25 | NUR ---
CASE MANAGEMENT:REVIEW 07/14/18 SI: ANEMIA. AMI. CHF 99.9 81 17 108/68 97% ON RA H/H-10.2/30.0 GLUCOSE+125 CA-8.1 IS: IV ROCEPHIN Q24 IVF@60/HR COREG HT Q12 IV PROTONIX QD : TELEMETRY STATUS [facility]
[2018-07-14 15:54] VITALS: BP 120/78
--- NOTE | 2018-07-14 19:20 | NUR ---
HAND-OFF: Report given to Savana Francis RN.
--- NOTE | 2018-07-14 19:20 | NUR ---
NURSE NOTES: received pt from day shift nurse. pt sleeping, no acute distress noted, no s/s of pain or discomfort. safety precaution in place. will continue to monitor pt.
[2018-07-14 20:00] VITALS: BP 126/79
--- NOTE | 2018-07-14 22:38 | General Progress Note ---
Assessment/Plan Assessment/Plan Assessment - UGIB - clinically resolved - Anemia, stable - Dysphagia, s/p Prior GT - CVA/OBS - DNR Recommendations - Follow CBC - Hold anticoagulation - PPI - no EGD for now per son instructions unless re-bleeds Subjective Allergies: Coded Allergies: No Known Allergies (Unverified , 07/09/18) Subjective Above noted H&H stable tolerating TF Objective Last 24 Hour Vital Signs Date Time Temp Pulse Resp B/P (MAP) Pulse Ox O2 Delivery O2 Flow Rate FiO2 07/14/18 21:00 Room Air 07/14/18 20:22 85 126/79 07/14/18 20:00 84 07/14/18 20:00 98.4 85 18 126/79 (95) 99 07/14/18 15:54 98.5 84 17 120/78 (92) 98 07/14/18 15:33 82 07/14/18 12:00 99.9 17 108/68 (81) 97 07/14/18 11:52 81 07/14/18 09:00 Room Air 07/14/18 08:42 83 167/87 07/14/18 08:00 98.6 17 167/87 (113) 97 07/14/18 07:49 89 07/14/18 04:00 83 07/14/18 04:00 98.8 20 112/76 (88) 99 07/14/18 00:00 73 07/14/18 00:00 97.8 18 107/63 (78) 96 Intake and Output 07/13/18 07/14/18 18:59 06:59 Intake Total 1150 ml 1080 ml Output Total 1500 ml 1100 ml Balance -350 ml -20 ml IV Total 600 ml 480 ml Tube Feeding 550 ml 600 ml Output Urine Total 1500 ml 1100 ml # Bowel Movements 2 2 Laboratory Tests 07/14/18 05:56: White Blood Count 10.5, Red Blood Count 3.38L, Hemoglobin 10.2L, Hematocrit 30.0L, Mean Corpuscular Volume 89, Mean Corpuscular Hemoglobin 30.1, Mean Corpuscular Hemoglobin Concent 33.9, Red Cell Distribution Width 14.6, Platelet Count 303, Mean Platelet Volume 6.3L, Neutrophils (%) (Auto) 79.0H, Lymphocytes (%) (Auto) 11.6L, Monocytes (%) (Auto) 7.4, Eosinophils (%) (Auto) 1.5, Basophils (%) (Auto) 0.4, Sodium Level 136, Potassium Level 3.8, Chloride Level 103, Carbon Dioxide Level 22, Anion Gap 11, Blood Urea Nitrogen 11, Creatinine 0.6, Estimat Glomerular Filtration Rate , Glucose Level 125H, Calcium Level 8.1L , Magnesium Level 2.0, Total Bilirubin 0.2, Aspartate Amino Transf (AST/SGOT) 24 , Alanine Aminotransferase (ALT/SGPT) 35, Alkaline Phosphatase 72, Pro-B-Type Natriuretic Peptide 311H, Total Protein 5.4L, Albumin 2.0L, Globulin 3.4, Albumin/Globulin Ratio 0.6L Height (Feet): 5 Height (Inches): 2.00 Weight (Pounds): 150 Objective Debilitated woman NCAT supple CTA RR abd soft GT no edema OBS Tonia Kim MD Jul 14, 2018 22:38
[2018-07-15] VITALS: BP 124/61
--- NOTE | 2018-07-15 01:00 | NUR ---
NURSE NOTES: plan of care endorsed pt to Radha Squires, pt remains stable, no change in condition,
--- NOTE | 2018-07-15 01:00 | NUR ---
NURSE NOTES: Report received from Savana Francis RN. Pt is resting in bed in stable condition. Pt is non-verbal but does open eyes to voice and light touch. Pt is on room air and breathing is even and unlabored. No acute distress noted. G-tube site and dressing is dry and intact. Tube feeding is running Osmalite 1.2 @ goal rate of 50cc/hr. Pt is tolerating feeding well. HOB kept above 30 degrees. Amato is patent and draining to gravity. IV sites are R AC #20g and L FA #20g and both are asymptomatic, patent, and intact. L FA #20g is running IV fluids at rx rate. Bed is in lowest position with brake engaged, side rails up x3, and bed alarm on. Call light and side table are placed within reach. Will continue to monitor.
--- NOTE | 2018-07-15 02:45 | Progress Note ---
DATE: 07/14/2018 CARDIOLOGY PROGRESS NOTE SUBJECTIVE: Hemoglobin remained stable. No new signs of bleeding. Tolerating feedings. The patient remains off anticoagulation. Monitored rhythm remains sinus. Frequent ectopic beats noted. OBJECTIVE: VITAL SIGNS: Blood pressure 112/76, pulse 83, and respirations 20. Afebrile. LUNGS: Clear. CARDIAC: Regular. ABDOMEN: Soft. EXTREMITIES: No edema. IMPRESSION: 1. Status post gastrointestinal bleed. 2. Severe anemia status post transfusions. 3. Acute myocardial ischemia. 4. Paroxysmal atrial fibrillation. 5. Cerebrovascular disease with history of subarachnoid bleed and chronic encephalopathy. 6. Escherichia coli urinary tract infection. PLAN: 1. The patient has a poor long-term prognosis and has very poor performance status. 2. Conservative management is optimal. 3. We will continue to defer endoscopy unless active bleeding is noted again. The patient will remain off anticoagulation at this time. I feel that, that would be most prudent in this patient's clinical setting. The patient will continue antimicrobials per Infectious Disease consultants. Repeat laboratory studies have been requested. No plans to resume anticoagulation at this time. 4. We will consider discharge back to halfway facility if the patient continues to have a stable course of recovery over the next 24 hours. Kayden Nichols M.D. DR: JUAN JOB#: [id number] CC:
[2018-07-15 04:00] VITALS: BP 131/66
--- NOTE | 2018-07-15 05:58 | NUR ---
NURSE NOTES: MD Walker at bedside. Spoke with regarding adding DNI to code status per RADHA. Per MD Walker, he will speak with family to clarify and update us as appropriate. Addendum: 07/15/18 at 0559 by DILLON BAY RN Pt to remain DNR per MD Walker for now.
--- NOTE | 2018-07-15 07:15 | NUR ---
DISCHARGE PLANNING PATIENT HAS BEEN REFERRED BACK TO [facility] T: [phone] AWAIT ACCEPTANCE AND ROOM ASSIGNMENT ~ WILL THEN NOTIFY DR PEREZ/CASSY
--- NOTE | 2018-07-15 07:16 | NUR ---
HAND-OFF: Report given to Nai Hancock RN. Pt is resting in bed in stable condition. No acute distress noted. Endorsed plan of care.
--- NOTE | 2018-07-15 07:36 | NUR ---
NURSE NOTES: Received report from MELE Garcia. Patient in bed resting, no active s/s cardiac, respiratory distress noticed at this time. Patient open eyes to verbal stimulus, non-verbal, SR with HR 84, on room air. Amato Catheter draining well to gravity. G-tube feeding, running at prescribed rate, tolerating. IV on left FA 20G, RT AC 20G, asymptomatic, patent, intact, IV fluid running at prescribed rate. Endorsed last BM dark brown black stool. Bed in lowest position, side rails upx3, call light within reach. Will continue to monitor.
[2018-07-15 08:00] VITALS: BP 118/64
[2018-07-15] MEDS: Carvedilol 6.25mg Tab GT SCH (09:01)
[2018-07-15] MEDS: Pantoprazole Inj IVP SCH (09:01)
--- NOTE | 2018-07-15 09:12 | General Progress Note ---
Assessment/Plan Problem List: (1) Sepsis ICD Codes: A41.9 - Sepsis, unspecified organism SNOMED: 57579874 (2) Acute gastrointestinal bleeding ICD Codes: K92.2 - Gastrointestinal hemorrhage, unspecified SNOMED: 87034107 (3) Anemia ICD Codes: D64.9 - Anemia, unspecified SNOMED: 836683646 (4) Hypotension ICD Codes: I95.9 - Hypotension, unspecified SNOMED: 33390229 (5) GI (gastrointestinal bleed) ICD Codes: K92.2 - Gastrointestinal hemorrhage, unspecified SNOMED: 77696582 Status: stable, progressing Assessment/Plan monitor h/h off anticoag ppi abx BP rx per cards dc planning Subjective ROS Limited/Unobtainable: No Constitutional: Reports: malaise, weakness HEENT: Reports: no symptoms Cardiovascular: Reports: no symptoms Respiratory: Reports: no symptoms Gastrointestinal/Abdominal: Reports: no symptoms Genitourinary: Reports: no symptoms Neurologic/Psychiatric: Reports: pre-existing deficit Endocrine: Reports: no symptoms Hematologic/Lymphatic: Reports: anemia Allergies: Coded Allergies: No Known Allergies (Unverified , 07/09/18) All Systems: reviewed and negative except above Subjective no bleeding. h/h remains stable. no sob. nonverbal and poorly responsive Objective Last 24 Hour Vital Signs Date Time Temp Pulse Resp B/P (MAP) Pulse Ox O2 Delivery O2 Flow Rate FiO2 07/15/18 09:01 85 118/64 07/15/18 08:00 98.6 85 18 118/64 (82) 96 07/15/18 04:00 98.5 83 18 131/66 (87) 97 07/15/18 04:00 84 07/15/18 00:00 98.3 76 18 124/61 (82) 98 07/15/18 00:00 84 07/14/18 21:00 Room Air 07/14/18 20:22 85 126/79 07/14/18 20:00 84 07/14/18 20:00 98.4 85 18 126/79 (95) 99 07/14/18 15:54 98.5 84 17 120/78 (92) 98 07/14/18 15:33 82 07/14/18 12:00 99.9 17 108/68 (81) 97 07/14/18 11:52 81 Intake and Output 07/14/18 07/15/18 19:00 07:00 Intake Total 1380 ml 300 ml Balance 1380 ml 300 ml Free Water 60 ml 100 ml IV Total 720 ml Tube Feeding 600 ml 200 ml Height (Feet): 5 Height (Inches): 2.00 Weight (Pounds): 150 Objective General Appearance: WD/WN, lethargic, confused Neck: supple Cardiovascular: regular rhythm Respiratory/Chest: chest wall non-tender, lungs clear, normal breath sounds Abdomen: normal bowel sounds, non tender, soft Edema: no edema noted Arm (L), no edema noted Arm (R), no edema noted Leg (L), no edema noted Leg (R), no edema noted Pedal (L), no edema noted Pedal (R), no edema noted Generalized Miguel Walker MD Jul 15, 2018 09:12
--- NOTE | 2018-07-15 09:59 | NUR ---
CASE MANAGEMENT:REVIEW 07/15/18 SI: ANEMIA. AMI. CHF 98.6 85 18 118/64 96% ON RA IS: IV ROCEPHIN Q24 IVF@60/HR COREG GT Q12 IV PROTONIX QD : TELEMETRY STATUS [facility]
--- NOTE | 2018-07-15 10:00 | NUR ---
DISCHARGE PLANNING PATIENT HAS BEEN REFERRED BACK TO [facility] T: [phone] AWAIT ACCEPTANCE AND ROOM ASSIGNMENT ~ WILL THEN NOTIFY DR PEREZ/CASSY Addendum: 07/15/18 at 1212 by JALEN SANCHEZN PATIENT [facility] RO[facility] DR PEREZ HAS BEEN UPDATED AWAIT DISCHARGE ORDER
--- NOTE | 2018-07-15 10:06 | Infectious Diseases Prog Note ---
Assessment/Plan Assessment/Plan antibiotics : ceftriaxone A 1. e.coli UTI s/p rx 2. leucocytosis resolved 3. CVA 4. hypertension 5. SAH P 1. d/c ceftriaxone 2. observe off antibiotics Subjective ROS Limited/Unobtainable: Yes Allergies: Coded Allergies: No Known Allergies (Unverified , 07/09/18) Objective Vital Signs Last 24 Hour Vital Signs Date Time Temp Pulse Resp B/P (MAP) Pulse Ox O2 Delivery O2 Flow Rate FiO2 07/15/18 09:01 85 118/64 07/15/18 09:00 Room Air 07/15/18 08:00 84 07/15/18 08:00 98.6 85 18 118/64 (82) 96 07/15/18 04:00 98.5 83 18 131/66 (87) 97 07/15/18 04:00 84 07/15/18 00:00 98.3 76 18 124/61 (82) 98 07/15/18 00:00 84 07/14/18 21:00 Room Air 07/14/18 20:22 85 126/79 07/14/18 20:00 84 07/14/18 20:00 98.4 85 18 126/79 (95) 99 07/14/18 15:54 98.5 84 17 120/78 (92) 98 07/14/18 15:33 82 07/14/18 12:00 99.9 17 108/68 (81) 97 07/14/18 11:52 81 Height (Feet): 5 Height (Inches): 2.00 Weight (Pounds): 150 Respiratory/Chest: lungs clear Cardiovascular: normal rate, regular rhythm, no gallop/murmur Abdomen: soft, non tender, other - GT Extremities: no edema Current Medications Medications (Trade) Dose Ordered Sig/Germain Route PRN Reason Start Time Stop Time Status Last Admin Dose Admin Carvedilol (Coreg) 6.25 mg EVERY 12 HOURS GT 07/12/18 21:00 08/11/18 20:59 07/15/18 09:01 Ceftriaxone Sodium 1 gm/ Dextrose 55 ml @ 110 mls/hr Q24H IVPB 07/12/18 12:00 07/16/18 11:59 07/14/18 12:06 Dextrose/ Electrolytes 1,000 ml @ 60 mls/hr [id number] IV 07/12/18:10 08/11/18 19:09 07/14/18 21:01 Pantoprazole (Protonix) 40 mg DAILY IVP 07/12/18 09:00 08/09/18 08:59 07/15/18 09:01 Armaan Gatica MD Jul 15, 2018 10:06
[2018-07-15 10:52] LABS: BASOPHILS % (AUTO) 0.5 % (0.0-2.0); EOSINOPHILS % (AUTO) 2.6 % (0.0-3.0); HEMATOCRIT 29.8 % (37.0-47.0); HEMOGLOBIN 10.5 G/DL (12.0-16.0); LYMPHOCYTES % (AUTO) 11.4 % (20.0-45.0); MEAN CORPUSCULAR VOLUME 87 FL (80-99); MONOCYTES % (AUTO) 9.9 % (1.0-10.0); NEUTROPHILS % (AUTO) 75.6 % (45.0-75.0); PLATELET COUNT 367 K/UL (150-450); RED BLOOD COUNT 3.43 M/UL (4.20-5.40); RED CELL DISTRIBUTION WIDTH 14.2 % (11.6-14.8); WHITE BLOOD COUNT 10.9 K/UL (4.8-10.8)
[2018-07-15 12:00] VITALS: BP 118/61
--- NOTE | 2018-07-15 12:03 | NUR ---
RD ASSESSMENT & RECOMMENDATIONS SEE CARE ACTIVITY FOR COMPLETE ASSESSMENT DAILY ESTIMATED NEEDS: Needs based on cardiac 55.5kg 25-30 kcals/kg 3056-0985 total kcals 1-1.2 g protein/kg 56-67 g total protein 25-30 mL/kg 3836-7482 total fluid mLs NUTRITION DIAGNOSIS: Swallowing difficulty r/t dysphagia as evidenced by pt is GT dep. CURRENT TF:Osmolite 1.2 @50ml/hr x24 hrs ENTERAL NUTRITION RECOMMENDATIONS: Osmolite 1.2 @50ml/hr x24 hrs to provide 1200ml, 1440 kcal, 67g prot, 984mll free H2O - Maintain current TF - Flush per MD. HOB over 30 degrees ADDITIONAL RECOMMENDATIONS: 1) Check lytes, BG daily on TF 2) Per SNF: pt is 122# -> Weekly wts on TF on Calibrated bed scale 3) Consider DC D5 to keep BGs in good control -> TF @ goal
--- NOTE | 2018-07-15 12:16 | NUR ---
DISCHARGE PLANNED DISCHARGE ORDER NOTED PATIENT WILL RETURN TO [facility] ROOM 11A SKILLED T: [phone] FOR NURSE TO NURSE REPORT [facility] HAS BEEN ARRANGED FOR [address]
--- NOTE | 2018-07-15 13:15 | NUR ---
NURSE NOTES: Dr. Nichols at the nursing station, per Dr. Nichols, continue hospital medication when discharge to [facility] rehab and remove Amato Catheter prior to discharge.
[2018-07-15] MEDS: D5 1/2NS w/KCL 10meq 1,000 ML IV SCH (13:50)
--- NOTE | 2018-07-15 14:20 | NUR ---
NURSE NOTES: [facility] [phone], report given to MELE Lainez. Family member made aware patient discharge to [facility] room 11A. Amato Catheter removed, patient able to spill urine, IV removed, ID band removed, placed in shredder, monitoring and evaluation advisor removed, returned to surveillance monitor. Patient has no belonging. Patient discharge in stable condition, accompanied by ambulance personnels.
--- NOTE | 2018-07-15 14:41 | NUR ---
*-* INSURANCE *-* ALL CLINICALS AND REVIEW HAVE BEEN FAXED TO: NEHA/LOBITO: PEYMAN P- [phone]
--- NOTE | 2018-07-15 22:02 | General Progress Note ---
Assessment/Plan Assessment/Plan Assessment - UGIB - clinically resolved - Anemia, stable, off of anticoagulation - Dysphagia, s/p Prior GT - CVA/OBS - DNR Recommendations - Follow CBC periodically - PPI - possible outpatient EGD if son wishes Subjective Allergies: Coded Allergies: No Known Allergies (Unverified , 07/09/18) Subjective Above noted seen patient early am H&H stable tolerating TF patient subsequently discharged received a call from son, Bradley, after patient d/c'd from hospital Son now states he wants the EGD to be done advised son that, per original discussion, agreed plan was to only do EGD if recurrent bleeding advised son no further bleeding advised son to discuss patient case with oupatient/SNF PMD. Should he still want EGD done, he is to call me and I will arrange as outpatient Objective Last 24 Hour Vital Signs Date Time Temp Pulse Resp B/P (MAP) Pulse Ox O2 Delivery O2 Flow Rate FiO2 07/15/18 12:00 98.9 78 20 118/61 (80) 95 07/15/18 09:01 85 118/64 07/15/18 09:00 Room Air 07/15/18 08:00 84 07/15/18 08:00 98.6 85 18 118/64 (82) 96 07/15/18 04:00 98.5 83 18 131/66 (87) 97 07/15/18 04:00 84 07/15/18 00:00 98.3 76 18 124/61 (82) 98 07/15/18 00:00 84 Intake and Output 07/14/18 07/15/18 18:59 06:59 Intake Total 1270 ml 410 ml Balance 1270 ml 410 ml Free Water 60 ml 100 ml IV Total 660 ml 60 ml Tube Feeding 550 ml 250 ml Laboratory Tests 07/15/18 10:10: White Blood Count 10.9H, Red Blood Count 3.43L, Hemoglobin 10.5L, Hematocrit 29.8L, Mean Corpuscular Volume 87, Mean Corpuscular Hemoglobin 30.8, Mean Corpuscular Hemoglobin Concent 35.4, Red Cell Distribution Width 14.2, Platelet Count 367, Mean Platelet Volume 6.1L, Neutrophils (%) (Auto) 75.6H, Lymphocytes (%) (Auto) 11.4L, Monocytes (%) (Auto) 9.9, Eosinophils (%) (Auto) 2.6, Basophils (%) (Auto) 0.5 Height (Feet): 5 Height (Inches): 2.00 Weight (Pounds): 150 Objective Debilitated woman NCAT supple CTA RR abd soft GT no edema OBS Tonia Kim MD Jul 15, 2018 22:02
--- NOTE | 2018-07-16 04:15 | Progress Note ---
DATE: 07/15/2018 CARDIOLOGY PROGRESS NOTE SUBJECTIVE: The patient has no distress. Vital are stable. Blood pressure 118/64, pulse 85, and respirations 18. Monitored rhythm, sinus. Hemoglobin has remained stable. No new bleeding noted for almost 5 to 6 days now. The patient's son has been advised that the patient will remain off anticoagulation and endoscopy at this time. It is not urgent as no active bleeding is seen and the patient's performance status is quite poor. It is very unlikely that any change in management would result from any endoscopy at this time. In addition, based on her debility and bleeding risk, I would not resume anticoagulation in this patient. IMPRESSION: 1. Status post gastrointestinal bleed due to hypercoagulability. 2. Severe anemia status post transfusions. 3. Acute myocardial ischemia. 4. Paroxysmal atrial fibrillation. 5. History of subarachnoid bleed with severe and chronic encephalopathy. 6. Escherichia coli urinary tract infection. PLAN: As outlined above, [facility] with medication regimen reviewed and reconciled. Kayden Nichols M.D. DR: JUAN JOB#: [id number] CC:
--- NOTE | 2018-07-17 11:02 | Discharge Summary ---
Discharge Summary Discharge Summary _ DATE OF ADMISSION: 08/05/2018 DATE OF DISCHARGE: 07/15/2018 DISCHARGED BY: REASON FOR ADMISSION: 77 years old female with past medical history of CVA, subarachnoid hemorrhage, hyperlipidemia , anemia, resident of senior living facility, DNR/DNI status with elective treatment, presented to emergency department after episode of coffee-ground emesis and melena. Upon presentation patient was tachycardic and hypoxic, and required 100% nonrebreathing mask to reach appropriate oxygenation. Laboratory workup revealed significant leukocytosis WBC 21.2, hemoglobin 5.9, hematocrit 17.3 platelets 414. INR 1.1. Potassium 5.2. BUN 99, creatinine 1.2. Glucose 166. AST 50, ALT 39. Ammonia 35. Troponin -0.099.EKG revealed sinus tachycardia, no acute ischemic changes. Albumin 2.2. Urinalysis revealed pyuria and moderate bacteria. CT of the head demonstrated evidence of prior right-sided aneurysm clipping. Ventriculomegaly, most likely on the basis of central atrophy , but hydrocephalus was also possible. 5 mm thick extra-axial collection deep to the craniotomy flap. Appearance was more suggestive of chronic dural scarring, related to prior surgery than to the acute bleeding. No associated mass-effect. CT of abdomen and pelvis without IV contrast revealed no definite acute abdominopelvic abnormality. 15 mm thick anterior wall pericardial effusion. Gastrostomy tube . Basilar pulmonary atelectatic changes. Nonspecific hazy ground-glass opacity, possibly representing atelectasis or edema. Chest x-ray revealed left basilar atelectasis no acute process otherwise. Patient received Protonix . Patient was started on blood transfusion . Patient was subsequently admitted to [facility] for further management. CONSULTANTS: ornamental ironworking supervisor ID specialist Dr. Gatica GI specialist dr. Kim [facility] COURSE: Patient admitted to [facility]. Patient was kept n.p.o. Patient started on the IV fluids and broad-spectrum antibiotics. All antiplatelet and anticoagulation therapy was discontinued. Hemoglobin hematocrit were closely monitored with goal to keep hemoglobin above 7. Hemodynamic status was closely monitored. Blood pressure responded to IV fluids , no need for pressors. Echocardiogram revealed preserved ejection fraction of 65% with no wall motion abnormality. Borderline mild left ventricular hypertrophy. Right ventricular systolic pressure of 46, consistent with moderate pulmonary hypertension. Moderate aortic regurgitation. Patient was continue on hypotonic IV fluids. Renal parameters and electrolytes were closely monitored. Electrolytes corrected as needed. Nephrotoxins were avoided. PPI was continued. Prior to discharge BUN 11, creatinine 0.6. All electrolytes stable. Infectious disease specialist closely followed. Urine culture revealed E. coli. Patient received antibiotic for treatment of E. coli for UTI. Leukocytosis resolved, no fevers. Infectious disease doctor recommended to observe patient off antibiotics and monitor closely. Hemoglobin and hematocrit were closely monitored with goal to keep hemoglobin above 7. Patient received total of 3 units of packed red blood cells. Prior to discharge hemoglobin 10.5 , hematocrit 29.8. GI specialist closely followed. Upper GI bleeding clinically resolved. Hemoglobin and hematocrit remained stable stable after transfusion. Patient was off anticoagulation. Stool for occult blood was positive. GI specialist recommended outpatient EGD , if patient's son agrees. Continue PPI. Strict aspiration precautions were maintained . G-tube feeding for continued . Patient was able to tolerate G-tube feeding. Supportive care provided. Bowel regimen instituted. LFT down to normal. Second troponin was negative. Acute myocardial ischemia resolved. Mild elevation of troponin was likely due to sepsis and acute GI bleeding. 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 Follow up with medical doctor at the facility. I have been assigned to dictate discharge summary for this account. I was not involved in the patient's management. Nessa Gerber NP Jul 17, 2018 11:02
== END 2018-07-15 14:45 | DRG 871 ==
LOC: EDBD 10:06 → EMR 10:25 → 2W 10:52 → UNDOADMIN 10:52 → EDBEDREQ 11:00 → EDBEDREQSVC 11:56 → EDBEDREQ 14:55 → 2E 07-11 16:51
PROC: 30233N1 Transfusion of Nonautologous Red Blood Cells into Peripheral Vein, Percutaneous Approach (ICD-10-PCS; principal; 2018-07-09)
DX: A41.9 Sepsis, unspecified organism (principal); E43 Unspecified severe protein-calorie malnutrition; K85.90 Acute pancreatitis without necrosis or infection, unspecified; R65.21 Severe sepsis with septic shock; I50.33 Acute on chronic diastolic (congestive) heart failure; N39.0 Urinary tract infection, site not specified; K92.2 Gastrointestinal hemorrhage, unspecified; Z43.1 Encounter for attention to gastrostomy; G93.40 Encephalopathy, unspecified; I31.3 Pericardial effusion (noninflammatory); E87.0 Hyperosmolality and hypernatremia; B96.20 Unspecified Escherichia coli [E. coli] as the cause of diseases classified elsewhere; E87.8 Other disorders of electrolyte and fluid balance, not elsewhere classified; I11.0 Hypertensive heart disease with heart failure; E86.0 Dehydration; I51.3 Intracardiac thrombosis, not elsewhere classified; I69.320 Aphasia following cerebral infarction; I69.391 Dysphagia following cerebral infarction; Z66 Do not resuscitate; R13.10 Dysphagia, unspecified; R09.02 Hypoxemia; E78.5 Hyperlipidemia, unspecified; D64.9 Anemia, unspecified; Z79.01 Long term (current) use of anticoagulants; Z79.82 Long term (current) use of aspirin; R79.1 Abnormal coagulation profile; E87.6 Hypokalemia
CPT/HCPCS: 36415; 70450; 71045; 74176; 80053; 80061; 81003; 82140; 82150; 82270; 82550; 82553; 83690; 83735; 83880; 84443; 84484; 85007; 85025; 85610; 85730; 86850; 86900; 86901; 86920; 87081; 87086; 87181; 93005; 93306; 96361; 96365; 96375; 99285; J2405; J8499